=== PATIENT | female | born 1950 | race Hispanic/Latino ===

== ENCOUNTER 2018-04-29 00:01 | Emergency (ER) | payer MEDICARE, OTHER ==
[2018-04-29 00:41] LABS: BASOPHILS % (AUTO) 0.9 % (0.0-5.0); EOSINOPHILS % (AUTO) 2.8 % (0.0-8.0); LYMPHOCYTES % (AUTO) 44.5 % (21.0-51.0); MEAN CORPUSCULAR HEMOGLOBIN 30.3 pg (27.0-33.0); MEAN CORPUSCULAR HGB CONC 34.9 g/dL (32.0-36.0); MEAN CORPUSCULAR VOLUME 86.8 fL (79-99); MONOCYTES % (AUTO) 6.9 % (3.0-13.0); NEUTROPHILS % (AUTO) 44.9 % (40.0-77.0); PLATELET COUNT (AUTO) 203 K/uL (130-400); RED BLOOD CELL COUNT(AUTO) 4.72 MIL/uL (4.00-5.50); RED CELL DISTRIBUTION WIDTH 13.7 % (11.0-15.5)
[2018-04-29 00:58] LABS: ALBUMIN 3.6 g/dL (3.5-5.0); BILIRUBIN,TOTAL 0.4 mg/dL (0.2-1.0); MAGNESIUM 1.8 mg/dL (1.80-2.40); TOTAL PROTEIN, SERUM 6.9 g/dL (6.0-8.3)
[2018-04-29 01:06] LABS: POTASSIUM 2.8 mmol/L (3.5-5.1)
[2018-04-29] MEDS ORDERED: POTASSIUM BICARB/CIT AC 25 MEQ TABLET.EFF ONE (01:21)
== END 2018-04-29 02:13 | disposition home or self-care (01) ==
LOC: EDH 00:01
DX: E87.6 Hypokalemia (principal); R00.2 Palpitations; I10 Essential (primary) hypertension; E78.5 Hyperlipidemia, unspecified
CPT/HCPCS: 36415; 80053; 82550; 83735; 84484; 85025; 93005

== ENCOUNTER → 2018-08-31 | Outpatient (CLI) | payer OTHER | END | disposition home or self-care (01) | LOC: RAH 08:54 | PROVIDERS: ATTEND Internal Medicine | DX: Z12.31 Encounter for screening mammogram for malignant neoplasm of breast (principal) | CPT/HCPCS: 77067 ==

== ENCOUNTER 2019-01-23 08:39 | Emergency (ER) | payer OTHER ==
[2019-01-23] MEDS ORDERED: ASPIRIN 325 MG TABLET ONE (08:55)
[2019-01-23 09:10] LABS: BASOPHILS % (AUTO) 1.1 % (0.0-5.0); EOSINOPHILS % (AUTO) 1.7 % (0.0-8.0); HEMATOCRIT 44.1 % (36-48); LYMPHOCYTES % (AUTO) 39.1 % (21.0-51.0); MEAN CORPUSCULAR HEMOGLOBIN 30.4 pg (27.0-33.0); MEAN CORPUSCULAR HGB CONC 34.3 g/dL (32.0-36.0); MEAN CORPUSCULAR VOLUME 88.6 fL (79-99); MONOCYTES % (AUTO) 7.9 % (3.0-13.0); NEUTROPHILS % (AUTO) 50.2 % (40.0-77.0); PLATELET COUNT (AUTO) 262 K/uL (130-400); RED BLOOD CELL COUNT(AUTO) 4.97 MIL/uL (4.00-5.50); WHITE BLOOD COUNT (AUTO) 6.8 K/uL (4.8-10.8)
[2019-01-23 09:18] LABS: CREATININE 1.7 mg/dL (0.5-1.5)
[2019-01-23 09:27] LABS: ALBUMIN 4.1 g/dL (3.5-5.0); BILIRUBIN,DIRECT 0.1 mg/dL (0.0-0.3); BILIRUBIN,TOTAL 0.4 mg/dL (0.2-1.0); MAGNESIUM 2.2 mg/dL (1.80-2.40); TOTAL PROTEIN, SERUM 7.8 g/dL (6.0-8.3)
[2019-01-23 09:35] LABS: INR 0.98 (0.85-1.15); PARTIAL THROMBOPLASTIN TIME 31.7 SEC (26.3-35.5); PROTHROMBIN TIME 10.3 SEC (9.6-11.6)
[2019-01-23 09:43] LABS: APPEARANCE,URINE Cloudy (CLEAR); BILIRUBIN,URINE Negative (NEGATIVE); COLOR,URINE Yellow (YELLOW); GLUCOSE, URINE (UA) Negative (NEGATIVE); KETONES,URINE Negative (NEGATIVE); LEUKOCYTE ESTERASE ,URINE Large (NEGATIVE); NITRATE,URINE Negative (NEGATIVE); OCCULT BLOOD,URINE Negative (NEGATIVE); PH,URINE 6.5 (5.0-8.0); PROTEIN,URINE Negative (NEGATIVE); UROBILINOGEN,URINE 0.2 mg/dL (0.2-1.0)
[2019-01-23 10:00] LABS: BACTERIA,URINE Few /HPF (None Seen); RBC,URINE None Seen /HPF (0-1); SQUAMOUS EPITHELIAL CELL,UR Few /HPF (0-2)
[2019-01-23] MEDS ORDERED: POTASSIUM CHLORIDE 20 MEQ ERTAB PO ONE ×2 (11:26→13:03)
== END 2019-01-23 15:34 | disposition home or self-care (01) ==
LOC: EDH 08:39
DX: I10 Essential (primary) hypertension (principal); R00.2 Palpitations; E87.6 Hypokalemia; N28.9 Disorder of kidney and ureter, unspecified
CPT/HCPCS: 36415; 71045; 80053; 80076; 81001; 82550; 83735; 83874; 84132; 84484; 85025; 85610; 85730; 87804; 93005

== ENCOUNTER → 2019-07-05 | Outpatient (CLI) | payer OTHER | END | disposition home or self-care (01) | LOC: RAH 10:23 | PROVIDERS: ATTEND Internal Medicine | DX: Z13.6 Encounter for screening for cardiovascular disorders (principal) | CPT/HCPCS: 75571 ==

== ENCOUNTER → 2019-09-01 | Outpatient (CLI) | payer OTHER | END | disposition home or self-care (01) | LOC: RAH 07:20 | PROVIDERS: ATTEND Internal Medicine | DX: Z12.31 Encounter for screening mammogram for malignant neoplasm of breast (principal) | CPT/HCPCS: 77067 ==

== ENCOUNTER 2020-05-02 21:53 | Inpatient (IN) | payer MEDICARE, OTHER ==
[~2020-05-02] VITALS: Ht 165.1 cm; Wt 91.4 kg
[2020-05-02] MEDS ORDERED: ASPIRIN 325 MG TABLET ONE (22:21)
[2020-05-02] MEDS ORDERED: DILTIAZEM HCL 5 MG/ML 10 ML VIAL IV ONE (22:21)
[2020-05-02 22:26] LABS: BASOPHILS % (AUTO) 0.4 % (0.0-5.0); EOSINOPHILS % (AUTO) 2.3 % (0.0-8.0); HEMATOCRIT 45.6 % (36-48); LYMPHOCYTES % (AUTO) 55.7 % (21.0-51.0); MEAN CORPUSCULAR HEMOGLOBIN 29.4 pg (27.0-33.0); MEAN CORPUSCULAR VOLUME 86.4 fL (79-99); MONOCYTES % (AUTO) 7.1 % (3.0-13.0); NEUTROPHILS % (AUTO) 34.3 % (40.0-77.0); PLATELET COUNT (AUTO) 233 K/uL (130-400); RED BLOOD CELL COUNT(AUTO) 5.28 MIL/uL (4.00-5.50); RED CELL DISTRIBUTION WIDTH 13.4 % (11.0-15.5); WHITE BLOOD COUNT (AUTO) 11.1 K/uL (4.8-10.8)
[2020-05-02 22:48] LABS: INR 0.94 (0.85-1.15); PARTIAL THROMBOPLASTIN TIME 31.9 SEC (26.3-35.5); PROTHROMBIN TIME 10.2 SEC (9.6-11.6)
[2020-05-02 22:54] LABS: CREATININE 1.2 mg/dL (0.5-1.5); POTASSIUM 3.5 mmol/L (3.5-5.1)
[2020-05-02 22:58] LABS: ALBUMIN 4.2 g/dL (3.5-5.0); BILIRUBIN,TOTAL 0.3 mg/dL (0.2-1.0)
[2020-05-02] MEDS ORDERED: SODIUM CHLORIDE 0.9% 1000ML 1,000 ML IV SCH (23:20)
[2020-05-02 23:27] LABS: APPEARANCE,URINE Clear (CLEAR); BILIRUBIN,URINE Negative (NEGATIVE); COLOR,URINE Yellow (YELLOW); GLUCOSE, URINE (UA) Negative (NEGATIVE); KETONES,URINE Negative (NEGATIVE); LEUKOCYTE ESTERASE ,URINE Small (NEGATIVE); NITRATE,URINE Negative (NEGATIVE); OCCULT BLOOD,URINE Small (NEGATIVE); PROTEIN,URINE POS 2+ mg/dL (NEGATIVE); UROBILINOGEN,URINE 0.2 mg/dL (0.2-1.0)
[2020-05-02] MEDS ORDERED: AEC81 PO (23:30)
[2020-05-02] MEDS ORDERED: METO25TA6 PO (23:30)
[2020-05-02] MEDS ORDERED: DILT240T13 PO (23:30)
[2020-05-02] MEDS ORDERED: LIDOCAINE HCL-MPF 1% 2ML VIAL IJ PRN (23:30)
[2020-05-02] MEDS ORDERED: LACTULOSE 20 GM/30 ML UDCUP PO PRN (23:30)
[2020-05-02] MEDS ORDERED: MAG HYDROX/AL HYDROX/SIMETH ES 30 ML SUSP UDCUP PO PRN (23:30)
[2020-05-02] MEDS ORDERED: ONDANSETRON HCL 4 MG/2 ML VIAL IV PRN (23:30)
[2020-05-02] MEDS ORDERED: PANT40TA54 PO (23:30)
[2020-05-02] MEDS ORDERED: DIPHENHYDRAMINE HCL 25 MG CAPSULE PO PRN (23:30)
[2020-05-02] MEDS ORDERED: PRAV40TA3 PO (23:30)
[2020-05-02] MEDS ORDERED: POTASSIUM CHLORIDE 10% ELIXIR 20 MEQ/15 ML UDCUP PO PRN (23:30)
[2020-05-02] MEDS ORDERED: POTASSIUM CHLORIDE 20 MEQ ERTAB PO PRN (23:30)
[2020-05-02] MEDS ORDERED: DiphenhydrAMINE HCL 50 MG/ML VIAL IV PRN (23:30)
[2020-05-02] MEDS ORDERED: POTASSIUM CHLORIDE 20MEQ/100ML 100 ML IV PRN (23:30)
[2020-05-02] MEDS ORDERED: LOSA25TA41 PO (23:30)
[2020-05-02] MEDS ORDERED: ACETAMINOPHEN 325 MG TAB PO PRN ×2 (23:30)
[2020-05-02 23:45] LABS: BACTERIA,URINE None Seen /HPF (None Seen); RBC,URINE 0-1 /HPF (0-1); SQUAMOUS EPITHELIAL CELL,UR Moderate /HPF (0-2)
[2020-05-02] MEDS ORDERED: METOPROLOL TARTRATE 1 MG/ML 5ML VIAL IV PRN (23:45)
[2020-05-03] MEDS ORDERED: ENOXAPARIN SODIUM 40 MG/0.4 ML SYRINGE SQ ONE (00:24)
[2020-05-03] MEDS ORDERED: SODIUM CHLORIDE 0.9% 1000ML 1,000 ML IV ONE (00:24)
[2020-05-03 03:40] VITALS: BP 161/68
[2020-05-03 07:04] LABS: TROPONIN I 0.04 ng/mL (0.00-0.06)
[2020-05-03 08:00] VITALS: BP 158/65
[2020-05-03] MEDS ORDERED: PANTOPRAZOLE SODIUM 40 MG TABLET.DR PO SCH (09:00)
[2020-05-03] MEDS ORDERED: ENOXAPARIN SODIUM 40 MG/0.4 ML SYRINGE SQ SCH (09:00)
[2020-05-03] MEDS ORDERED: DILTIAZEM HCL 120 MG CAP.SR.24H PO SCH (09:00)
[2020-05-03] MEDS ORDERED: METOPROLOL TARTRATE 50 MG TAB PO SCH (09:00)
[2020-05-03] MEDS ORDERED: LOSARTAN 50 MG TABLET PO SCH (09:00)
[2020-05-03] MEDS ORDERED: APIXABAN 5 MG TABLET PO SCH (09:15)
[2020-05-03] MEDS ORDERED: METO25TA6 PO (09:22)
[2020-05-03] MEDS ORDERED: APIX5TAB PO (09:22)
[2020-05-03 11:19] LABS: CREATINE KINASE, TOTAL 52 U/L (21-232); MYOGLOBIN 48 ng/mL (10-92); TROPONIN I < 0.04 ng/mL (0.00-0.06)
[2020-05-03 11:27] VITALS: BP 146/61
--- NOTE | 2020-05-03 15:58 | NUR ---
DCP CM met with pt discussed dc plans. Pt is independent prior to admission, verbalized she lives alone but currently living w/mother next door as mother needs asssistance, brother lives close by. Pt verbalized she has a walker that her Mom owns, but hardly uses, she can use it if needed in the future. Denies any other equipments/services. Feels safe to go back home, still drives, brother able to assist with transportation and needs as necessary. DC plan to home once stable. CM to continue to follow up. Verified physical address: [id number] [address] Addendum: 05/03/20 at 1601 by JAREK CARPENTER LVN CM Amended: Links added.
[2020-05-03 16:00] VITALS: BP 156/88
--- NOTE | 2020-05-03 17:39 | NUR ---
RECEIVED CALL FROM DR. FINK. PATIENT CLEARED FOR DISCHARGE. PATIENT TO FOLLOW UP IN OFFICE IN 2-3 DAYS, OFFICE WILL CALL PATIENT TOMORROW WITH AN APPOINTMENT. PER DR. FINK SHE WILL PLACE DISCHARGE ORDERS AND SEND FOR ELIQUIS RX. PATIENT MADE AWARE OF DISCHARGE PLAN
--- NOTE | 2020-05-03 18:05 | NUR ---
DISCHARGE INSTRUCTIONS GIVEN TO PATIENT. MADE AWARE OF NEW RX FOR ELIQUIS, AND DOSE CHANGES TO METOPROLOL. PATIENT AT THIS TIME DENIES CHEST PAIN, DENIES PALPITATIONS. NO SIGNS AND SYMPTOMS OF ACUTE DISTRESS NOTED. INSTRUCTED TO STOP ASPIRIN. TELE AND IV REMOVED. PATIENT WILL BE TAKEN HOME BY FAMILY MEMBER.
[2020-05-03] MEDS ORDERED: SIMVASTATIN 20 MG TABLET PO SCH (21:00)
[2020-05-03] MEDS ORDERED: METOPROLOL TARTRATE 50 MG TAB PO ONE (23:45)
== END 2020-05-03 18:19 | disposition home or self-care (01) | DRG 310 ==
LOC: EDH 21:53 → EDHIP 23:20 → 4BH 05-03 03:27
PROVIDERS: ADMIT Internal Medicine; ATTEND Internal Medicine
DX: I48.91 Unspecified atrial fibrillation (principal); E78.2 Mixed hyperlipidemia; J30.9 Allergic rhinitis, unspecified; N18.2 Chronic kidney disease, stage 2 (mild); E87.6 Hypokalemia; I12.9 Hypertensive chronic kidney disease with stage 1 through stage 4 chronic kidney disease, or unspecified chronic kidney disease; K21.9 Gastro-esophageal reflux disease without esophagitis; Z79.82 Long term (current) use of aspirin; Z79.899 Other long term (current) drug therapy; Z82.49 Family history of ischemic heart disease and other diseases of the circulatory system; Z88.8 Allergy status to other drugs, medicaments and biological substances
CPT/HCPCS: 36415; 71045; 80053; 81001; 82550; 83874; 84484; 85025; 85610; 85730; 93005; 93306; 93356; 99291; G0378; J1650; J7030

== ENCOUNTER → 2020-06-15 | Outpatient (CLI) | payer MEDICARE, OTHER ==
[~2020-06-15] MED LIST: APIX5TAB PO; DILT240T13 PO; LOSA25TA41 PO; METO25TA6 PO; PANT40TA54 PO; PRAV40TA3 PO; REGADENOSON 0.4 MG/5 ML PF SYG IVP SCH
== END | disposition home or self-care (01) ==
LOC: RAH 08:26
PROVIDERS: ATTEND Internal Medicine
DX: R07.9 Chest pain, unspecified (principal); R00.2 Palpitations
CPT/HCPCS: 78452; 93017; 96374; A9500 ×2; J2785

== ENCOUNTER → 2020-09-01 | Outpatient (CLI) | payer OTHER ==
[~2020-09-01] MED LIST changes: -REGADENOSON 0.4 MG/5 ML PF SYG IVP SCH
== END | disposition home or self-care (01) ==
LOC: RAH 07:34
PROVIDERS: ATTEND Internal Medicine
DX: Z12.31 Encounter for screening mammogram for malignant neoplasm of breast (principal); N64.89 Other specified disorders of breast
CPT/HCPCS: 77067

== ENCOUNTER 2022-01-14 06:24 | Emergency (ER) | payer MEDICARE, OTHER ==
[~2022-01-14] VITALS: Ht 165.1 cm; Wt 94.3 kg
[2022-01-14 06:45] LABS: BASOPHILS % (AUTO) 0.6 % (0.0-5.0); EOSINOPHILS % (AUTO) 1.6 % (0.0-8.0); HEMATOCRIT 47.4 % (36-48); LYMPHOCYTES % (AUTO) 37.8 % (21.0-51.0); MEAN CORPUSCULAR HEMOGLOBIN 29.1 pg (27.0-33.0); MEAN CORPUSCULAR HGB CONC 32.9 g/dL (32.0-36.0); MEAN CORPUSCULAR VOLUME 88.4 fL (79-99); MONOCYTES % (AUTO) 6.4 % (3.0-13.0); NEUTROPHILS % (AUTO) 53.3 % (40.0-77.0); PLATELET COUNT (AUTO) 233 K/uL (130-400); RED BLOOD CELL COUNT(AUTO) 5.36 MIL/uL (4.00-5.50); RED CELL DISTRIBUTION WIDTH 13.3 % (11.0-15.5); WHITE BLOOD COUNT (AUTO) 8.8 K/uL (4.8-10.8)
[2022-01-14 06:46] LABS: BILIRUBIN,URINE Negative (NEGATIVE); GLUCOSE, URINE (UA) Negative (NEGATIVE); KETONES,URINE Negative (NEGATIVE); LEUKOCYTE ESTERASE ,URINE Small (NEGATIVE); NITRATE,URINE Negative (NEGATIVE); OCCULT BLOOD,URINE Trace (NEGATIVE); PH,URINE 7.5 (5.0-8.0); PROTEIN,URINE POS 2+ mg/dL (NEGATIVE); UROBILINOGEN,URINE 0.2 mg/dL (0.2-1.0)
[2022-01-14 06:49] LABS: APPEARANCE,URINE CLEAR (CLEAR); COLOR,URINE COLORLESS (YELLOW)
[2022-01-14 06:57] LABS: BACTERIA,URINE Moderate /HPF (None Seen); RBC,URINE 0-1 /HPF (0-1); YEAST,URINE BUDDING Moderate /HPF (None Seen)
[2022-01-14 07:08] LABS: BILIRUBIN,TOTAL 0.3 mg/dL (0.2-1.0); POTASSIUM 3.7 mmol/L (3.5-5.1); TOTAL PROTEIN, SERUM 7.8 g/dL (6.0-8.3)
[2022-01-14 08:04] VITALS: BP 148/71
== END 2022-01-14 08:05 | disposition home or self-care (01) ==
LOC: EDH 06:24
DX: I48.0 Paroxysmal atrial fibrillation (principal); I10 Essential (primary) hypertension; E78.00 Pure hypercholesterolemia, unspecified; Z90.49 Acquired absence of other specified parts of digestive tract; Z88.8 Allergy status to other drugs, medicaments and biological substances; Z79.899 Other long term (current) drug therapy
CPT/HCPCS: 36415; 80053; 81001; 84484; 85025; 87088; 93005

== ENCOUNTER 2022-02-05 06:53 | Emergency (ER) | payer MEDICARE ==
[~2022-02-05] VITALS: Ht 162.6 cm; Wt 85.7 kg
[2022-02-05 07:08] LABS: BASOPHILS % (AUTO) 0.6 % (0.0-5.0); EOSINOPHILS % (AUTO) 2.1 % (0.0-8.0); LYMPHOCYTES % (AUTO) 50.1 % (21.0-51.0); MEAN CORPUSCULAR HGB CONC 33.4 g/dL (32.0-36.0); MEAN CORPUSCULAR VOLUME 86.9 fL (79-99); MONOCYTES % (AUTO) 7.2 % (3.0-13.0); NEUTROPHILS % (AUTO) 39.7 % (40.0-77.0); PLATELET COUNT (AUTO) 217 K/uL (130-400); RED BLOOD CELL COUNT(AUTO) 4.72 MIL/uL (4.00-5.50); RED CELL DISTRIBUTION WIDTH 13.2 % (11.0-15.5); WHITE BLOOD COUNT (AUTO) 7.3 K/uL (4.8-10.8)
[2022-02-05 07:18] LABS: INR 1.04 (0.85-1.15); PROTHROMBIN TIME 11.3 SEC (9.6-11.6)
[2022-02-05 07:20] LABS: PARTIAL THROMBOPLASTIN TIME 34.3 SEC (26.3-35.5)
[2022-02-05 07:25] LABS: ALBUMIN 3.8 g/dL (3.5-5.0); BILIRUBIN,TOTAL 0.7 mg/dL (0.2-1.0); CREATININE 0.9 mg/dL (0.5-1.5); POTASSIUM 4.1 mmol/L (3.5-5.1); TOTAL PROTEIN, SERUM 7.4 g/dL (6.0-8.3)
[2022-02-05] MEDS ORDERED: KETOROLAC 15MG/ML VIAL (15MG/ML) IV ONE (07:30)
[2022-02-05 08:44] VITALS: BP 132/48
== END 2022-02-05 08:44 | disposition home or self-care (01) ==
LOC: EDH 06:53
DX: R07.89 Other chest pain (principal); I48.91 Unspecified atrial fibrillation; I25.10 Atherosclerotic heart disease of native coronary artery without angina pectoris; E11.9 Type 2 diabetes mellitus without complications; I10 Essential (primary) hypertension; Z90.89 Acquired absence of other organs; Z88.8 Allergy status to other drugs, medicaments and biological substances; Z79.899 Other long term (current) drug therapy; Z79.01 Long term (current) use of anticoagulants
CPT/HCPCS: 36415; 71045; 80053; 83735; 84484; 85025; 85610; 85730; 93005; 96374; 99285; J1885

== ENCOUNTER → 2022-09-04 | Outpatient (CLI) | payer MEDICARE | END | disposition home or self-care (01) | LOC: RAH 08:40 | PROVIDERS: ATTEND Internal Medicine | DX: Z12.31 Encounter for screening mammogram for malignant neoplasm of breast (principal) | CPT/HCPCS: 77067 ==

== ENCOUNTER 2023-03-19 13:50 | Observation (INO) | payer MEDICARE ==
[~2023-03-19] VITALS: Ht 154.9 cm; Wt 74.4 kg
[2023-03-19] MEDS ORDERED: MECLIZINE HCL 25 MG TABLET PO ONE (14:30)
[2023-03-19] MEDS ORDERED: LACTATED RINGERS 1000ML 1,000 ML IV ONE (14:30)
[2023-03-19] MEDS ORDERED: ONDANSETRON 4MG INJ IVP ONE (14:30)
[2023-03-19 14:43] LABS: APPEARANCE,URINE CLOUDY (CLEAR); BILIRUBIN,URINE NEGATIVE (NEGATIVE); COLOR,URINE LIGHT-YELLOW (YELLOW); GLUCOSE, URINE (UA) NEGATIVE (NEGATIVE); KETONES,URINE NEGATIVE (NEGATIVE); LEUKOCYTE ESTERASE ,URINE 25 Leu/uL (NEGATIVE); NITRATE,URINE NEGATIVE (NEGATIVE); OCCULT BLOOD,URINE NEGATIVE (NEGATIVE); PH,URINE 6.5 (5.0-8.0); PROTEIN,URINE 10 mg/dL (NEGATIVE); UROBILINOGEN,URINE 0.2 mg/dL (0.2-1.0)
[2023-03-19 15:00] LABS: BACTERIA,URINE RARE /HPF (None Seen); MUCUS,URINE RARE LPF (None Seen); SQUAMOUS EPITHELIAL CELL,UR MOD /HPF (0-2); YEAST,URINE BUDDING RARE /HPF (None Seen)
[2023-03-19] MEDS ORDERED: METOCLOPRAMIDE 10 MG/2 ML VIAL ONE (15:24)
[2023-03-19] MEDS ORDERED: METOCLOPRAMIDE 10 MG/2 ML VIAL IVP ONE (15:30)
[2023-03-19 15:48] LABS: BASOPHILS % (AUTO) 0.5 % (0.0-5.0); EOSINOPHILS % (AUTO) 0.2 % (0.0-8.0); HEMATOCRIT 37.4 % (36-48); LYMPHOCYTES % (AUTO) 16.6 % (21.0-51.0); MEAN CORPUSCULAR HEMOGLOBIN 29.4 pg (27.0-33.0); MEAN CORPUSCULAR HGB CONC 33.7 g/dL (32.0-36.0); MEAN CORPUSCULAR VOLUME 87.4 fL (79-99); PLATELET COUNT (AUTO) 206 K/uL (130-400); RED BLOOD CELL COUNT(AUTO) 4.28 MIL/uL (4.00-5.50); RED CELL DISTRIBUTION WIDTH 13.4 % (11.0-15.5)
[2023-03-19 16:00] LABS: CREATININE 0.9 mg/dL (0.5-1.5)
[2023-03-19 16:05] LABS: ALBUMIN 3.3 g/dL (3.5-5.0); TOTAL PROTEIN, SERUM 5.8 g/dL (6.0-8.3)
[2023-03-19] MEDS ORDERED: CEFTRIAXONE 1G VIAL IVPB ONE (16:30)
[2023-03-19] MEDS ORDERED: HYDR-4154 PO (16:50)
[2023-03-19] MEDS ORDERED: LOSA50TA64 PO (16:50)
[2023-03-19] MEDS ORDERED: METO-408 PO (16:50)
[2023-03-19] MEDS ORDERED: LINA72CA PO (16:50)
[2023-03-19] MEDS ORDERED: CALC1TAB2 PO (16:51)
[2023-03-19] MEDS ORDERED: ACETAMINOPHEN 325 MG TAB PO PRN (17:00)
[2023-03-19] MEDS ORDERED: ONDANSETRON 4MG INJ IVP PRN (17:00)
[2023-03-19] MEDS: 0.9%NACL 1000ML 1,000 ML IV SCH (17:50)
[2023-03-19] MEDS: SOLU-MEDROL 125MG VIAL IVP SCH ×2 (17:51→23:13)
[2023-03-19 20:05] VITALS: BP 136/65
[2023-03-19 23:07] VITALS: BP 119/63
[2023-03-20] MEDS ORDERED: MAG/ALUM/SIMETH 30 ML UDCUP PO PRN (00:30)
[2023-03-20] MEDS ORDERED: POTASSIUM CHLORIDE 20MEQ/100ML 100 ML IV PRN (00:30)
[2023-03-20] MEDS ORDERED: KCL 20 MEQ ERTAB PO PRN (00:30)
[2023-03-20] MEDS ORDERED: DIPHENHYDRAMINE HCL 25 MG CAPSULE PO PRN (00:30)
[2023-03-20] MEDS ORDERED: ACETAMINOPHEN 325 MG TAB PO PRN (00:30)
[2023-03-20] MEDS ORDERED: POTASSIUM CHLORIDE 10% ELIXIR 20 MEQ/15 ML UDCUP PO PRN (00:30)
[2023-03-20] MEDS ORDERED: LACTULOSE 20 GM/30 ML UDCUP PO PRN (00:30)
[2023-03-20] MEDS ORDERED: MECLIZINE HCL 25 MG TABLET PO PRN (00:30)
[2023-03-20 03:11] VITALS: BP 151/75
[2023-03-20] MEDS: 0.9%NACL 1000ML 1,000 ML IV SCH (04:22)
[2023-03-20] MEDS: SOLU-MEDROL 125MG VIAL IVP SCH (05:29)
[2023-03-20 07:25] VITALS: BP 146/67
[2023-03-20] MEDS ORDERED: PRED10TA3 PO (08:42)
[2023-03-20] MEDS ORDERED: FAMOTIDINE 20MG TAB PO SCH (09:00)
[2023-03-20] MEDS ORDERED: PREDNISONE 20 MG TABLET PO SCH (09:00)
[2023-03-20] MEDS ORDERED: HYDRALAZINE 25MG TABLET PO SCH (09:00)
[2023-03-20] MEDS ORDERED: APIXABAN 5 MG TABLET PO SCH (09:00)
[2023-03-20] MEDS ORDERED: PANTOPRAZOLE 40 MG TAB DR PO SCH (09:00)
[2023-03-20] MEDS ORDERED: SIMVASTATIN 20 MG TABLET PO SCH (09:00)
[2023-03-20 11:58] VITALS: BP 136/60
[2023-03-21] MEDS ORDERED: SIMVASTATIN 20 MG TABLET PO SCH (21:00)
== END 2023-03-20 15:30 | disposition home or self-care (01) ==
LOC: EDH 13:50 → EDHIP 16:34 → WSH 19:30
PROVIDERS: ADMIT Internal Medicine; ATTEND Internal Medicine
DX: R42 Dizziness and giddiness (principal); E78.5 Hyperlipidemia, unspecified; J30.9 Allergic rhinitis, unspecified; I12.9 Hypertensive chronic kidney disease with stage 1 through stage 4 chronic kidney disease, or unspecified chronic kidney disease; N18.31 Chronic kidney disease, stage 3a; E11.22 Type 2 diabetes mellitus with diabetic chronic kidney disease; I48.0 Paroxysmal atrial fibrillation; D68.69 Other thrombophilia; I25.10 Atherosclerotic heart disease of native coronary artery without angina pectoris; I51.7 Cardiomegaly; I70.0 Atherosclerosis of aorta; Z79.01 Long term (current) use of anticoagulants; Z79.899 Other long term (current) drug therapy; Z90.49 Acquired absence of other specified parts of digestive tract; Z98.890 Other specified postprocedural states
CPT/HCPCS: 96376 ×2; 96361 ×2; 96365; 96375; 99285; 84484; 80053; 85025; 87088; 81001; 36415; 71045; 70551; 93005; 97161; J7030 ×2; J2930 ×3; J0696; J2405; J2765; G0378 ×15

== ENCOUNTER → 2023-09-05 | Outpatient (CLI) | payer MEDICARE ==
[~2023-09-05] MED LIST changes: +CALC1TAB2 PO; +HYDR-4154 PO; +LINA72CA PO; -LOSA25TA41 PO; +LOSA50TA64 PO; +METO-408 PO; -METO25TA6 PO; -PANT40TA54 PO; +PRED10TA3 PO
== END | disposition home or self-care (01) ==
LOC: RAH 08:37
PROVIDERS: ATTEND Internal Medicine
DX: Z12.31 Encounter for screening mammogram for malignant neoplasm of breast (principal)
CPT/HCPCS: 77067

== ENCOUNTER 2025-03-03 21:17 | Emergency (ER) | payer MEDICARE ==
[~2025-03-03] VITALS: Ht 167.6 cm; Wt 90.7 kg
[~2025-03-03 21:17] MED LIST changes: -HYDR-4154 PO; +HYDR50TA37 PO
--- NOTE | 2025-03-03 21:53 | HMCIMG ---
CHEST 1VW HISTORY: Chest pain COMPARISON: 03/19/2023 FINDINGS: A frontal projection of the chest was obtained. Mild bilateral pulmonary infiltrates are seen may be related to mild pulmonary vascular congestion with possible superimposed pneumonitis. The heart is enlarged. Aortic calcifications are seen. Degenerative changes are seen. No evidence of aortic calcification is seen. IMPRESSION: 1. Mild bilateral pulmonary infiltrates are seen may be related to mild pulmonary vascular congestion with possible superimposed pneumonitis.
[2025-03-03 21:54] LABS: APPEARANCE,URINE CLOUDY (CLEAR); BILIRUBIN,URINE NEGATIVE (NEGATIVE); COLOR,URINE LIGHT-YELLOW (YELLOW); GLUCOSE, URINE (UA) NEGATIVE (NEGATIVE); KETONES,URINE NEGATIVE (NEGATIVE); LEUKOCYTE ESTERASE ,URINE 500 Leu/uL (NEGATIVE); NITRATE,URINE NEGATIVE (NEGATIVE); OCCULT BLOOD,URINE NEGATIVE (NEGATIVE); PH,URINE 6.5 (5.0-8.0); PROTEIN,URINE 10 mg/dL (NEGATIVE); UROBILINOGEN,URINE 0.2 mg/dL (0.2-1.0)
[2025-03-03 21:57] LABS: ADD UA MICROSCOPIC YES
[2025-03-03 21:58] LABS: BASOPHILS # (AUTO) 0.06 K/uL (0.00-0.20); BASOPHILS % (AUTO) 0.5 % (0.0-5.0); EOSINOPHILS % (AUTO) 1.6 % (0.0-8.0); HEMATOCRIT 42.9 % (36-48); IMMATURE GRANULOCYTE ABSOLUTE 0.03 K/uL (0-1); LYMPHOCYTES # (AUTO) 6.7 K/uL (1.0-4.8); LYMPHOCYTES % (AUTO) 54.9 % (21.0-51.0); MEAN CORPUSCULAR HGB CONC 34.3 g/dL (32.0-36.0); MEAN CORPUSCULAR VOLUME 90.5 fL (79-99); NEUTROPHILS # (AUTO) 4.2 K/uL (1.8-7.7); NEUTROPHILS % (AUTO) 34.8 % (40.0-77.0); PLATELET COUNT (AUTO) 249 K/uL (130-400); RED BLOOD CELL COUNT(AUTO) 4.74 MIL/uL (4.00-5.50); RED CELL DISTRIBUTION WIDTH 13.3 % (11.0-15.5); WHITE BLOOD COUNT (AUTO) 12.1 K/uL (4.8-10.8)
[2025-03-03 22:08] LABS: CREATININE 1.3 mg/dL (0.5-1.0); POTASSIUM 3.2 mmol/L (3.5-5.1)
[2025-03-03 22:11] LABS: BACTERIA,URINE MOD /HPF (None Seen); RENAL EPITHELIAL CELLS,URINE RARE /HPF (None Seen); SQUAMOUS EPITHELIAL CELL,UR MANY /HPF (0-2); WBC,URINE TNTC /HPF (0-1)
[2025-03-03 23:08] LABS: B-TYPE NATRIURETIC PEPTIDE 209 pg/mL (0-100)
[2025-03-03 23:13] LABS: EOSINOPHILS % (MANUAL) 1 % (1-6); LYMPHOCYTES % (MANUAL) 65 % (22-44); MAN.DIFF COMMENT-IMPRESSION MANUAL DIFFERENTIAL; MONOCYTES % (MANUAL) 3 % (2-9); SEGMENTED NEUTROPHILS % 31 % (40-70); TOTAL CELLS COUNTED 100; WBC MORPHOLOGY REACTIVE LYMPHS 2+
[2025-03-03 23:14] LABS: PLATELET MORPHOLOGY COMMENT ADEQUATE
[2025-03-03] MEDS: PoTASSium BIcarbonate/CIT AC 25 MEQ TABLET.EFF PO ONE (23:24)
[2025-03-03] MEDS: 0.9%NACL 1000ML 1,000 ML IV ONE (23:24)
[2025-03-03] MEDS: cefTRIAXone 1G VIAL IVPB ONE (23:25)
--- NOTE | 2025-03-04 00:04 | ERN ---
General Chief Complaint: Chest Pain Stated Complaint: CHEST PAIN Time Seen by MD: 21:34 History of Present Illness Allergies: Coded Allergies: amlodipine (Unverified Allergy, Unknown, 05/03/20) Home Meds Active Scripts Prednisone (Prednisone) 10 Mg Tablet, 10 MG PO AD, #7 TAB 2 daily x 2 days then 1 po daily x 3 days then stop- take with food in the mourning Prov:GAVIN FINK MD 03/20/23 Calcium Carbonate/Vitamin D3 (Caltrate 600 + D Tablet) 1 Each Tablet, 1 EACH PO DAILY, #90 TAB Prov:GAVIN FINK MD 03/19/23 Linaclotide (Linzess) 72 Mcg Capsule, 72 MCG PO QODAY, #45 CAP Prov:GAVIN FINK MD 03/19/23 Hydralazine HCl (Hydralazine HCl) 50 Mg Tablet, 50 MG PO BID, #180 TAB Prov:GAVIN FINK MD 03/19/23 Metoprolol Succinate (Metoprolol Succinate) 25 Mg Tab.er.24h, 25 MG PO DAILY, #90 TAB Prov:GAVIN FINK MD 03/19/23 Losartan Potassium (Losartan Potassium) 50 Mg Tablet, 50 MG PO BID, #180 TAB Prov:GAVIN FINK MD 03/19/23 Apixaban (Eliquis) 5 Mg Tablet, 5 MG PO BID, #60 TAB 1 Refill Prov:GAVIN FINK MD 05/03/20 Pravastatin Sodium (Pravastatin Sodium) 40 Mg Tablet, 40 MG PO DAILY, #90 TAB 1 Refill Prov:GAVIN FINK MD 05/02/20 Diltiazem HCl (Diltiazem ER) 240 Mg Tab.er.24h, 240 MG PO DAILY, #90 TAB 0 Refills Prov:GAVIN FINK MD 05/02/20 Past Medical History Past Medical History: Diabetes-Type II, High Cholesterol, Hypertension Past Surgical History: Appendectomy, Unknown Social History Social History: Negative, Other Results Laboratory and Microbiology Lab and Micro Result Laboratory Tests Test 03/03/25 21:31 White Blood Count 12.1 K/uL (4.8-10.8) H Red Blood Count 4.74 MIL/uL (4.00-5.50) Hemoglobin 14.7 g/dL (12.0-16.0) Hematocrit 42.9 % (36-48) Mean Corpuscular Volume 90.5 fL (79-99) Mean Corpuscular Hemoglobin 31.0 pg (27.0-33.0) Mean Corpuscular Hemoglobin Concent 34.3 g/dL (32.0-36.0) Red Cell Distribution Width 13.3 % (11.0-15.5) Platelet Count 249 K/uL (130-400) Mean Platelet Volume 9.9 fL (7.5-10.5) Immature Granulocyte % (Auto) 0.2 % (0-1) Neutrophils (%) (Auto) 34.8 % (40.0-77.0) L Lymphocytes (%) (Auto) 54.9 % (21.0-51.0) H Monocytes (%) (Auto) 8.0 % (3.0-13.0) Eosinophils (%) (Auto) 1.6 % (0.0-8.0) Basophils (%) (Auto) 0.5 % (0.0-5.0) Neutrophils # (Auto) 4.2 K/uL (1.8-7.7) Lymphocytes # (Auto) 6.7 K/uL (1.0-4.8) H Monocytes # (Auto) 1.0 K/uL (0.1-1.0) Eosinophils # (Auto) 0.20 K/uL (0.00-0.70) Basophils # (Auto) 0.06 K/uL (0.00-0.20) Absolute Immature Granulocyte (auto 0.03 K/uL (0-1) Segmented Neutrophils % 31 % (40-70) L Lymphocytes % (Manual) 65 % (22-44) H Monocytes % (Manual) 3 % (2-9) Eosinophils % (Manual) 1 % (1-6) Nucleated Red Blood Cells 0.0 % (0.0-0.19) Differential Comment MANUAL DIFFERENTIAL White Cell Morphology Comment REACTIVE LYMPHS 2+ Platelet Morphology Comment ADEQUATE Red Blood Cell Morphology ACANTHOCYTES 1+ Urine Color LIGHT-YELLOW (YELLOW) Urine Appearance CLOUDY (CLEAR) H Urine pH 6.5 (5.0-8.0) Urine Specific [place] 1.008 (1.001-1.031) Urine Protein 10 mg/dL (NEGATIVE) H Urine Glucose (UA) NEGATIVE mg/dL (NEGATIVE) Urine Ketones NEGATIVE mg/dL (NEGATIVE) Urine Occult Blood NEGATIVE (NEGATIVE) Urine Nitrate NEGATIVE (NEGATIVE) Urine Bilirubin NEGATIVE mg/dL (NEGATIVE) Urine Urobilinogen 0.2 mg/dL (0.2-1.0) Urine Leukocyte Esterase 500 [place]/uL (NEGATIVE) H Urine RBC 11-25 /HPF (0-1) H Urine WBC TNTC /HPF (0-1) H Urine Squamous Epithelial Cells MANY /HPF (0-2) Urine Renal Epithelial Cells RARE /HPF (None Seen) Urine Amorphous Crystals (Auto) MOD /LPF (None Seen) Urine Bacteria MOD /HPF (None Seen) Sodium Level 140 mmol/L (136-145) Potassium Level 3.2 mmol/L (3.5-5.1) L Chloride Level 104 mmol/L (101-111) Carbon Dioxide Level 26 mmol/L (21-32) Blood Urea Nitrogen 25 mg/dL (7-18) H Creatinine 1.3 mg/dL (0.5-1.0) H Glomerular Filtration Rate Calc 43 mL/min (>90) Random Glucose 120 mg/dL (70-105) H Total Calcium 9.4 mg/dL (8.5-10.1) Total Creatine Kinase 83 U/L (21-232) # Troponin I High Sensitivity 8 ng/L (4-50) B-Type Natriuretic Peptide 209 pg/mL (0-100) H ED Course Orders Procedure Category Date Status Time Vital Signs Per CPOE 03/03/25 Transmitted Routine 21:19 B-Type Natriuretic LAB 03/03/25 Complete Peptide 21:19 Chest 1vw RAD 03/03/25 Resulted 21:19 12 Lead Ekg Tracing- EKG 03/03/25 Logged Technical 21:19 Oxygen By Nc/Pulse Ox CPOE 03/03/25 Transmitted 21:19 Maintain Iv CPOE 03/03/25 Transmitted 21:19 Iv Insertion CPOE 03/03/25 Transmitted 21:19 Cardiac Monitoring CPOE 03/03/25 Transmitted 21:19 Pulse Oximetry With CPOE 03/03/25 Transmitted Vs And Prn 21:19 Cbc With Differential LAB 03/03/25 Complete 21:19 Activity: Br W/Brp CPOE 03/03/25 Transmitted With Assist 21:19 Creatine Kinase, Total LAB 03/03/25 Complete 21:19 Troponin I High LAB 03/03/25 Complete Sensitivity 21:19 Urinalysis Profile LAB 03/03/25 Complete 21:19 Basic Metabolic Panel LAB 03/03/25 Complete 21:19 Culture Urine NEDA 03/03/25 In Process 21:57 Manual Differential LAB 03/03/25 Complete 21:31 0.9%Nacl 1000ml (Ns PHA 03/03/25 Complete 1000ml) 23:30 Potassium Bicarb/Cit PHA 03/03/25 Complete Ac 25meq (K-Lyte Ta 23:30 Ceftriaxone 1g Vial PHA 03/03/25 Complete (Rocephine 1g Inj) 23:30 Current Medications Medications (Trade) Dose Ordered Sig/Yamel Route PRN Reason Start Time Stop Time Status Last Admin Dose Admin Ceftriaxone Sodium (ROCEphine 1G INJ) 1 gm ONCE ONCE IVPB 03/03/25 23:30 03/03/25 23:31 DC 03/03/25 23:25 Potassium Bicarbonate (K-Lyte Tablet Eff 25 Meq Tablet.eff) 25 meq ONCE ONCE PO 03/03/25 23:30 03/03/25 23:31 DC 03/03/25 23:24 Sodium Chloride 1,000 ml @ 0 mls/hr ONCE ONCE IV 03/03/25 23:30 03/03/25 23:31 DC 03/03/25 23:24 Vital Signs Date Time Temp Pulse Resp B/P (MAP) Pulse Ox O2 Delivery O2 Flow Rate FiO2 03/03/25 23:30 98.2 78 18 147/88 98 Room Air* 0 21 03/03/25 21:39 74 18 154/92 96 Room Air* 0 21 03/03/25 21:18 98.2 64 22 166/84 97 Room Air DX & DISP Disposition: Discharge Departure Impression: Primary Impression: History of atrial fibrillation Additional Impressions: Mild dehydration, Hypokalemia, Urinary tract infection Condition: Stable Scripts Cephalexin Monohydrate (Keflex) 500 Mg Cap 500 MG PO QID for 7 Days, #28 CAP Prov: EARL MONET 03/04/25 Referrals: GAVIN FNIK MD (PCP) I have reviewed the case, and I agree with, Diagnosis and Plan I performed the substantive portion of the visit. I have reviewed and personally made and approve the management plan that is documented in the note by myself or the SHANI. I acknowledge for responsibility for the patient's management plan. EARL MONET Mar 04, 2025 00:04
[2025-03-04] MEDS ORDERED: CEPH500B PO (00:08)
[2025-03-04 00:29] VITALS: BP 137/85; PULSE 78; RESP 18; TEMP 98.2; O2SAT 97
--- NOTE | 2025-03-04 07:54 | EKG ---
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1950 Requested By: DELISA RUBIN Order Number: [id number] Reading MD: Shea Sharma Measurements Intervals [place] Rate: 74 P: 0 FL: 0 QRS: -40 QRSD: 96 T: 56 QT: 439 QTc: 487 Interpretive Statements Atrial fibrillation Left anterior fascicular block LVH with secondary repolarization abnormality Anterior Q waves, possibly due to LVH Compared to ECG 03/19/2023 14:14:29 Left anterior fascicular block now present Early repolarization now present Q waves now present Sinus rhythm no longer present Electronically Signed On 03-04-2025 09:34:02 CDT by Shea Sharma Please click the below link to view image of tracing.
[2025-03-04] MEDS ORDERED: CIPOTIC OTIC (11:23)
== END 2025-03-04 00:36 | disposition home or self-care (01) ==
LOC: EDH 21:17
DX: E86.0 Dehydration (principal); E87.6 Hypokalemia; N39.0 Urinary tract infection, site not specified; E11.9 Type 2 diabetes mellitus without complications; E78.00 Pure hypercholesterolemia, unspecified; I10 Essential (primary) hypertension; Z79.01 Long term (current) use of anticoagulants; Z79.899 Other long term (current) drug therapy; Z88.8 Allergy status to other drugs, medicaments and biological substances; Z90.49 Acquired absence of other specified parts of digestive tract
CPT/HCPCS: 99285; 96365; 71045; 82550; 84484; 80048; 83880; 85025; 87086; 81001; 36415; 93005; J7030; J0696

== ENCOUNTER 2025-03-04 09:08 | Emergency (ER) | payer MEDICARE ==
[~2025-03-04] VITALS: Ht 167.6 cm; Wt 96.2 kg
[~2025-03-04 09:08] MED LIST changes: +CEPH500B PO
[2025-03-04] MEDS: diazePAM 5 MG TAB PO STA (09:39)
[2025-03-04] MEDS: LACTATED RINGERS 1000ML 1,000 ML IV ONE (11:06)
[2025-03-04] MEDS ORDERED: CIPOTIC OTIC (11:23)
--- NOTE | 2025-03-04 11:24 | ERN ---
General Chief Complaint: Palpitations Stated Complaint: PALPITATIONS Time Seen by MD: 09:11 Source: patient, family History of Present Illness Initial Comments Patient is a 75-year-old female coming in to be evaluated for anxiety. Patient states that the anxiety event is caused by pain in her left ear. Patient was recently seen yesterday and was discharged in stable condition. Patient states that she was still having the discomfort. Allergies: Coded Allergies: amlodipine (Unverified Allergy, Unknown, 05/03/20) Home Meds Active Scripts Cephalexin Monohydrate (Keflex) 500 Mg Cap, 500 MG PO QID for 7 Days, #28 CAP Prov:EARL MONET 03/04/25 Prednisone (Prednisone) 10 Mg Tablet, 10 MG PO AD, #7 TAB 2 daily x 2 days then 1 po daily x 3 days then stop- take with food in the mourning Prov:GAVIN FINK MD 03/20/23 Calcium Carbonate/Vitamin D3 (Caltrate 600 + D Tablet) 1 Each Tablet, 1 EACH PO DAILY, #90 TAB Prov:GAVIN FINK MD 03/19/23 Linaclotide (Linzess) 72 Mcg Capsule, 72 MCG PO QODAY, #45 CAP Prov:GAVIN FINK MD 03/19/23 Hydralazine HCl (Hydralazine HCl) 50 Mg Tablet, 50 MG PO BID, #180 TAB Prov:GAVIN FINK MD 03/19/23 Metoprolol Succinate (Metoprolol Succinate) 25 Mg Tab.er.24h, 25 MG PO DAILY, #90 TAB Prov:GAVIN FINK MD 03/19/23 Losartan Potassium (Losartan Potassium) 50 Mg Tablet, 50 MG PO BID, #180 TAB Prov:GAVIN FINK MD 03/19/23 Apixaban (Eliquis) 5 Mg Tablet, 5 MG PO BID, #60 TAB 1 Refill Prov:GAVIN FINK MD 05/03/20 Pravastatin Sodium (Pravastatin Sodium) 40 Mg Tablet, 40 MG PO DAILY, #90 TAB 1 Refill Prov:GAVIN FINK MD 05/02/20 Diltiazem HCl (Diltiazem ER) 240 Mg Tab.er.24h, 240 MG PO DAILY, #90 TAB 0 Refills Prov:GAVIN FINK MD 05/02/20 Past Medical History Past Medical History: A-Fib, Diabetes-Type II, High Cholesterol, Hypertension Past Surgical History: Appendectomy, Unknown Social History Social History: Negative, Other ROS Dictation CONSTITUTIONAL: No chills, no fever, no weakness, no diaphoresis, no malaise. HEAD/FACE: No signs of trauma. EENT: No eye pain, no blurred vision, no tearing, no double vision, no ear pain, no ear discharge, no nose pain, no nasal congestion, no throat pain, no throat swelling, no mouth pain. RESPIRATORY: No cough, no orthopnea, no SOB, no stridor, no wheezing. CARDIOVASCULAR: No chest pain, no edema, no palpitations, no syncope. GASTROINTESTINAL/ABDOMINAL: No abdominal pain, no constipation, no diarrhea, no nausea, no vomiting. GENITOURINARY: No abnormal discharge, no dysuria, no frequent urination, no hematuria. No complaints of pain in the genitals. MUSCULOSKELETAL: No back pain, no gout, no joint pain, no joint swelling, no muscle pain, no muscle stiffness, no neck pain. INTEGUMENTARY: No change in color, no change in hair/nails, no dryness, no lesion, no lumps, no rash. NEUROLOGICAL/PSYCH: No anxiety, not depressed, no emotional problem, no headache, no numbness, no pre-existing deficit, no history of seizures, no tremors, no weakness. HEMATOLOGIC/LYMPHATIC: Not anemic, no history of blood clots, no apparent bleeding, no bruising, glands not swollen. All Systems Negative, Except as Noted. Physical Exam Physical Exam Dictation VITAL SIGNS: Reviewed. GENERAL APPEARANCE: Alert, oriented x3, no acute distress, obese. HEAD AND FACE: Non-traumatic. EYES: PERRL, pink conjunctivas, eyelid no trauma, anterior chamber clear. EARS: Pinnas intact and no signs of trauma or erythema. Ear canals clear and no discharge. Foreign body to the left ear, cerumen impaction NOSE: No discharge, no bleeding. OROPHARYNX: Mouth normal, teeth no caries, tongue pink. Pharynx clear, no erythema. Tonsils no exudates, no abscesses noted. Mucous membrane moist. NECK: Supple, non-tender, no thyromegaly, no masses, no JVD, no bruits. BREAST: Deferred. CHEST: No tenderness, no crepitus, no paradoxical movement, no retractions. LUNGS: Clear, well-ventilated, symmetric, no rales, no wheezing, no rhonchi, no stridor, good breath sounds bilaterally. HEART: Regular rate, regular rhythm, no murmur, no gallops. VASCULAR: No peripheral edema. ABDOMEN: Soft, positive bowel sounds, nondistended, no guarding, nontender, no rebound, no masses no hepatomegaly, no splenomegaly, no Recinos's sign, no hernias. RECTAL: Deferred. GENITAL: Deferred. NEUROLOGICAL: Normal speech, gross motor function intact, gross sensory function intact. MUSCULOSKELETAL: Neck nontender, full range of motion, back nontender, full range of motion. EXTREMITIES: Nontender, full range of motion. SKIN: Color pink, dry, no turgor, no rash, no lacerations, no abrasions, no contusions. LYMPHATICS: Deferred. Results Laboratory and Microbiology Labs Reviewed?: Yes EKG/XRAY/US/CT/MRI EKG Comment 03/04/2025 time 9:06 a.m. Ventricular rate 57 Sinus rhythm [place] [address] wave elevation or depression MDM MDM: Differential diagnosis: Left otitis media, cerumen impaction, anxiety, Rationale: Tests considered and ordered secondary to shared decision making include: Previous outside records reviewed: Old ER visits. Patient is a 75-year-old female coming in for the 2nd time due to left ear d iscomfort and anxiety. EKG was performed due the anxiousness with palpitation she was presenting with. EKG was within normal limits. On physical exam left external ear was presenting with a foreign body in the form of cerumen impaction. Ear was cleaned cerumen was removed. Patient was given anxiolytics states he feels much better. Patient will be discharged in stable condition with otitis externa antibiotics he will be provided. I did advise her to follow up with PCP for long-term management of anxiety. ED Course Orders Procedure Category Date Status Time 12 Lead Ekg Tracing- EKG 03/04/25 Logged Technical 09:11 Lactated Ringers PHA 03/04/25 Complete 1000ml (Lactated 09:30 Troponin I High LAB 03/04/25 In Process Sensitivity 09:11 Diazepam 5mg Tab PHA 03/04/25 Complete (Valium 5 Mg Tab) 09:21 Current Medications Medications (Trade) Dose Ordered Sig/Yamel Route PRN Reason Start Time Stop Time Status Last Admin Dose Admin Diazepam (VALium 5 mg TAB) 5 mg Q4H STAT PO 03/04/25 09:21 03/04/25 09:23 DC 03/04/25 09:39 Lactated Ringer's 1,000 ml @ 0 mls/hr ONCE ONCE IV 03/04/25 09:30 03/04/25 09:31 DC Vital Signs Date Time Temp Pulse Resp B/P (MAP) Pulse Ox O2 Delivery O2 Flow Rate FiO2 03/04/25 09:24 87.8 55 18 150/66 99 Room Air* 0 21 03/04/25 09:09 97.9 55 20 150/66 99 Room Air DX & DISP Disposition: Discharge Departure Impression: Primary Impression: Foreign body in left ear Additional Impression: Anxiety Condition: Stable Scripts Ciprofloxacin/Hydrocortisone (Cipro Hc Otic Suspension) 0.2 %-1 % Drops.susp 3 DROP OTIC BID for 7 Days, #10 ML 0 Refills Prov: KAREN FREEMAN MD 03/04/25 Additional Instructions: FOLLOW-UP WITH PRIMARY CARE PROVIDER IN 1 TO 2 DAYS. TAKE MEDICATIONS DIRECTED HERE IN THE EMERGENCY ROOM. OKAY TO CONTINUE HOME MEDICATIONS UNLESS OTHERWISE DISCUSSED DURING YOUR VISIT IN THE EMERGENCY ROOM TODAY. RETURN TO YOUR NEAREST EMERGENCY ROOM IF SYMPTOMS WORSEN OR IF THERE IS NO IMPROVEMENT. CALL 911 IF YOU NEED IMMEDIATE ASSISTANCE. TAKE TYLENOL [id number] NE EDED AND IF NO CONTRAINDICATIONS ARE PRESENT. INCREASE ORAL HYDRATION. A WOUND CULTURE OR URINE CULTURE WAS ORDERED HERE IN THE EMERGENCY ROOM DEPARTMENT PLEASE FOLLOW-UP WITH PRIMARY CARE PROVIDER AND ADVISE THEM TO GET REPEAT PORTS FROM OUR FACILITY. IF YOU HAD ANY MARY JO WRAP/SPLINTS THAT WERE APPLIED HERE, PLEASE DO NOT REMOVE THEM UNTIL YOU SEE YOUR PRIMARY CARE OR SPECIALTY. Referrals: Referrals: GAVIN FINK MD (PCP) Time of Disposition: 11:23 KAREN FREEMAN MD Mar 04, 2025 11:24
[2025-03-04 11:29] VITALS: BP 148/67; PULSE 63; RESP 17; TEMP 98.8; O2SAT 97
--- NOTE | 2025-03-04 11:43 | NUR ---
PT STABLE AAOX4 NO C/O OF EAR PAIN STATES MILD DISCOMFORT BUT IT FEELS BETTER. PT HAS NO IV, PT GIVEN ONE RX TO DROP OFF TO PHARMACY. PT TAKEN OUT IN W/C DRIVEN HOME BY BROTHER.
--- NOTE | 2025-03-04 16:36 | EKG ---
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1950 Requested By: KAREN FREEMAN Order Number: [id number] Reading MD: Shea Sharma Measurements Intervals [place] Rate: 57 P: 76 IN: 161 QRS: -44 QRSD: 98 T: 28 QT: 480 QTc: 466 Interpretive Statements Sinus rhythm Left anterior fascicular block Low voltage, precordial leads Probable left ventricular hypertrophy Compared to ECG 03/03/2025 21:18:56 Low QRS voltage now present Atrial fibrillation no longer present Early repolarization no longer present Q waves no longer present Electronically Signed On 03-05-2025 17:03:02 CDT by Shea Sharma Please click the below link to view image of tracing.
== END 2025-03-04 11:45 | disposition home or self-care (01) ==
LOC: EDH 09:08
DX: T16.2XXA Foreign body in left ear, initial encounter (principal); E11.9 Type 2 diabetes mellitus without complications; E78.00 Pure hypercholesterolemia, unspecified; F41.9 Anxiety disorder, unspecified; I10 Essential (primary) hypertension; I44.4 Left anterior fascicular block; I48.91 Unspecified atrial fibrillation; Z79.01 Long term (current) use of anticoagulants; Z79.899 Other long term (current) drug therapy; Z88.8 Allergy status to other drugs, medicaments and biological substances; Z90.49 Acquired absence of other specified parts of digestive tract; W44.9XXA Unspecified foreign body entering into or through a natural orifice, initial encounter; Y93.89 Activity, other specified; Y92.89 Other specified places as the place of occurrence of the external cause; Y99.8 Other external cause status
CPT/HCPCS: 69209; 84484; 93005; 99283; 99284

== ENCOUNTER 2025-06-12 10:32 | Emergency (ER) | payer MEDICARE ==
[~2025-06-12] VITALS: Ht 165.1 cm; Wt 95.7 kg
[~2025-06-12 10:32] MED LIST changes: +CIPOTIC OTIC; -PRAV40TA3 PO; +PRAV40TA62 PO
--- NOTE | 2025-06-12 10:41 | ERN ---
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 SHE IS COMING IN TODAY WITH COMPLAINTS OF PALPITATION SHE HAS HAD ONSET TWO DAYS PRIOR TO ARRIVAL WITH HER HEART RATE GOING UP AND DOWN. SHE DENIES CHEST PAIN BACK PAIN NO SOB. SHE IS ON MULTIPLE MEDICATIONS FOR HYPERTENSION AND HYPERCHOLESTEROLEMIA. SHE SAYS NO NAUSEA VOMITING. SHE HAS NOT SEEN HER AGRONOMY TECHNICIAN'S IN THREE MONTHS. Allergies: Coded Allergies: amlodipine (Unverified Allergy, Unknown, 05/03/20) Home Meds Active Scripts Ciprofloxacin/Hydrocortisone (Cipro Hc Otic Suspension) 0.2 %-1 % Drops.susp, 3 DROP OTIC BID for 7 Days, #10 ML 0 Refills Prov:KAREN FREEMAN MD 03/04/25 Cephalexin Monohydrate (Keflex) 500 Mg Cap, 500 MG PO QID for 7 Days, #28 CAP Prov:EARL MONET 03/04/25 Prednisone (Prednisone) 10 Mg Tablet, 10 MG PO AD, #7 TAB 2 daily x 2 days then 1 po daily x 3 days then stop- take with food in the mourning Prov:GAVIN FINK MD 03/20/23 Calcium Carbonate/Vitamin D3 (Caltrate 600 + D Tablet) 1 Each Tablet, 1 EACH PO DAILY, #90 TAB Prov:GAVIN FINK MD 03/19/23 Linaclotide (Linzess) 72 Mcg Capsule, 72 MCG PO QODAY, #45 CAP Prov:GAVIN FINK MD 03/19/23 Hydralazine HCl (Hydralazine HCl) 50 Mg Tablet, 50 MG PO BID, #180 TAB Prov:GAVIN FINK MD 03/19/23 Metoprolol Succinate (Metoprolol Succinate) 25 Mg Tab.er.24h, 25 MG PO DAILY, #90 TAB Prov:GAVIN FINK MD 03/19/23 Losartan Potassium (Losartan Potassium) 50 Mg Tablet, 50 MG PO BID, #180 TAB Prov:GAVIN FINK MD 03/19/23 Apixaban (Eliquis) 5 Mg Tablet, 5 MG PO BID, #60 TAB 1 Refill Prov:GAVIN FINK MD 05/03/20 Pravastatin Sodium (Pravastatin Sodium) 40 Mg Tablet, 40 MG PO DAILY, #90 TAB 1 Refill Prov:GAVIN FINK MD 05/02/20 Diltiazem HCl (Diltiazem ER) 240 Mg Tab.er.24h, 240 MG PO DAILY, #90 TAB 0 Refills Prov:GAVIN FINK MD 05/02/20 Past Medical History Past Medical History: A-Fib, Diabetes-Type II, High Cholesterol, Heart Disease, Hypertension Additional Past Medical Hx: VERTIGO Surgical History: Appendectomy, Unknown Social History: Negative, Other History: Not Applicable RN Note Reviewed/Agreed w/PFSH: Yes Review of System Dictation CONSTITUTIONAL: Negative except for HPI HEAD/FACE: Negative except for HPI EENT: Negative except for HPI RESPIRATORY: Negative except for HPI palpitations GASTROINTESTINAL/ABDOMINAL: Negative except for HPI GENITOURINARY: Negative except for HPI MUSCULOSKELETAL: Negative except for HPI INTEGUMENTARY: Negative except for HPI NEUROLOGICAL/PSYCH: Negative except for HPI HEMATOLOGIC/LYMPHATIC: Negative except for HPI All Systems Negative, Except as noted above. 13 point review of systems assessed and all negative except for above. Initial Vital Sign VS Vital Signs Date Time Temp Pulse Resp B/P (MAP) Pulse Ox O2 Delivery O2 Flow Rate FiO2 06/12/25 10:36 97.9 60 16 137/61 97 Room Air 0 06/12/25 10:39 21 Physical Exam Dictation Vital Signs reviewed General Appearance: Alert, oriented x 3, no acute distress, well developed, nourished. Head and Face: non-traumatic. Eyes: PERRL, pink conjunctivas, eyelid no trauma, anterior chamber with arcus senilis. Ears: Pinnas intact and no signs of trauma or erythema ear canals clear and no discharge TM no erythema Nose: No discharge, no bleeding. Oropharynx: Mouth normal, tongue pink, pharynx clear,no erythema, tonsils no exudates, no abscesses noted, mucous membrane moist Neck: Supple, non-tender, no thyromegaly, no masses, no JVD, no bruits Breast:Deferred Chest:No tenderness, no crepitus, no paradoxical movement, no retractions Lungs:Clear, well-ventilated, symmetric, no rales, no wheezing, no rhonchi, no stridor, good breath sounds bilaterally Heart: Regular rate, regular rhythm, no murmur, no gallops Vascular: no peripheral edema, Abdomen: Soft, positive bowel sounds, nondistended, no guarding, nontender, no rebound, no masses no hepatomegaly, no splenomegaly, no Recinos's sign, no hernias. Rectal: Deferred Genital: Deferred Neurological: Normal speech, motor function intact, sensory function intact Musculoskeletal: Neck nontender, full range of motion, back nontender, full range of motion, Extremities: nontender, full range of motion Skin: Color pink, dry, no turgor, no rash, no lacerations, no abrasions, no contusions. Lymphatic: Deferred Results (Laboratory/Radiology) Laboratory/Radiology Laboratory Tests Test 06/12/25 11:00 White Blood Count 6.4 K/uL (4.8-10.8) Red Blood Count 4.69 MIL/uL (4.00-5.50) Hemoglobin 14.4 g/dL (12.0-16.0) Hematocrit 42.4 % (36-48) Mean Corpuscular Volume 90.4 fL (79-99) Mean Corpuscular Hemoglobin 30.7 pg (27.0-33.0) Mean Corpuscular Hemoglobin Concent 34.0 g/dL (32.0-36.0) Red Cell Distribution Width 13.3 % (11.0-15.5) Platelet Count 220 K/uL (130-400) Mean Platelet Volume 10.0 fL (7.5-10.5) Immature Granulocyte % (Auto) 0.5 % (0-1) Neutrophils (%) (Auto) 53.7 % (40.0-77.0) Lymphocytes (%) (Auto) 37.5 % (21.0-51.0) Monocytes (%) (Auto) 6.1 % (3.0-13.0) Eosinophils (%) (Auto) 1.6 % (0.0-8.0) Basophils (%) (Auto) 0.6 % (0.0-5.0) Neutrophils # (Auto) 3.4 K/uL (1.8-7.7) Lymphocytes # (Auto) 2.4 K/uL (1.0-4.8) Monocytes # (Auto) 0.4 K/uL (0.1-1.0) Eosinophils # (Auto) 0.10 K/uL (0.00-0.70) Basophils # (Auto) 0.04 K/uL (0.00-0.20) Absolute Immature Granulocyte (auto 0.03 K/uL (0-1) Nucleated Red Blood Cells 0.0 % (0.0-0.19) Sodium Level 141 mmol/L (136-145) Potassium Level 3.4 mmol/L (3.5-5.1) L Chloride Level 107 mmol/L (101-111) Carbon Dioxide Level 27 mmol/L (21-32) Blood Urea Nitrogen 21 mg/dL (7-18) H Creatinine 1.2 mg/dL (0.5-1.0) H Glomerular Filtration Rate Calc 47 mL/min (>90) Random Glucose 154 mg/dL (70-105) H Total Calcium 9.2 mg/dL (8.5-10.1) Magnesium Level 1.70 mg/dL (1.80-2.40) L Troponin I High Sensitivity 8 ng/L (4-50) B-Type Natriuretic Peptide 446 pg/mL (0-100) H EXAM: CR Chest, 1 View. CLINICAL HISTORY: CHEST PAIN/SOB COMPARISON: 03/03/2025. FINDINGS: LUNGS: There is no mass, infiltrate, or acute pulmonary abnormality. PLEURAL SPACES: No evidence of pleural effusion or pneumothorax. MEDIASTINUM: The cardiomediastinal silhouette is within normal limits. BONES: No aggressive appearing osseous lesion seen. IMPRESSION: No acute cardiopulmonary pathology is evident. /[place] Labs Reviewed?: Yes EKG Comment: EKG sinus bradycardia/heart rate 55/left fascicular block mild left hyper ventricular hypertrophy. Q-wave seen lead V2 ED Course ED Course Orders Procedure Category Date Status Time B-Type Natriuretic LAB 06/12/25 Complete Peptide 10:39 Cbc With Differential LAB 06/12/25 Complete 10:39 Chest 1vw RAD 06/12/25 Resulted 10:39 12 Lead Ekg Tracing- EKG 06/12/25 Logged Technical 10:39 Magnesium LAB 06/12/25 Complete 10:39 Troponin I High LAB 06/12/25 Complete Sensitivity 10:39 Basic Metabolic Panel LAB 06/12/25 Complete 10:39 Potassium Bicarb/Cit PHA 06/12/25 Complete Ac 25meq (K-Lyte Ta 12:00 Magnesium 2gm Premix PHA 06/12/25 In Process 50ml (Magnesium 2gm 12:00 Current Medications Medications (Trade) Dose Ordered Sig/Yamel Route PRN Reason Start Time Stop Time Status Last Admin Dose Admin Magnesium Sulfate 50 ml @ 0 mls/hr PROTOCOL IV 06/12/25 12:00 07/12/25 11:59 06/12/25 12:31 Potassium Bicarbonate (K-Lyte Tablet Eff 25 Meq Tablet.eff) 25 meq ONCE ONCE PO 06/12/25 12:00 06/12/25 12:01 DC 06/12/25 12:29 Vital Signs Date Time Temp Pulse Resp B/P (MAP) Pulse Ox O2 Delivery O2 Flow Rate FiO2 06/12/25 12:31 98.1 55 12 114/49 98 Room Air* 0 06/12/25 11:24 98.1 53 15 135/53 95 Room Air* 0 06/12/25 10:39 98.2 56 13 173/104 97 Room Air* 0 06/12/25 10:36 97.9 60 16 137/61 97 Room Air 0 1245/SPOKE WITH PATIENT AFTER MAGNESIUM AND POTASSIUM WAS REPLACED. SHE STATES SHE FEELS MARKEDLY IMPROVED. I TOLD HER I WOULD LIKE TO ADMITTED TO THE HOSPITAL FOR ELECTROLYTE STABILIZATION AND HAVE HER HYPERTENSION MEDICATIONS REVIEWED SHE AND HER WHO RIDE BEDSIDE REFUSED TO STAY AND SAID THEY WOULD RATHER GO HOME AND FOLLOW UP WITH HER PRIMARY CARE DOCTOR TOMORROW. I GAVE BOTH RATIONALE FOR THE ADMISSION HOWEVER THEY WOULD LIKE TO GO HOME. HEART Score Response (Comments) Value EKG: Repolarization changes 1 Age: > 65yrs (+2) 2 Risk Factors: 3+ risk factors (+2) 2 Initial Troponin: Normal limit (0) 0 Total 5 Medical Decision Making MDM MDM: DIFFERENTIAL DIAGNOSIS: ACS/AMI/ELECTROLYTE IMBALANCE/DEHYDRATION/PALPITATIONS/HYPOMAGNESEMIA/PNEUMONIA/BRONCHITIS RATIONALE: TESTS CONSIDERED AND ORDERED SECONDARY TO SHARED DECISION MAKING INCLUDE: EKG/LABS/RADIOLOGY PREVIOUS OUTSIDE RECORDS REVIEWED: OLD ER VISITS. RISK OF COMPLICATION AND/OR MORBIDITY OR MORTALITY OF PATIENT MANAGEMENT: NONE MEDICATIONS-PER MEDICATION RECONCILIATION NEED FOR HOSPITALIZATION: PATIENT DOES NOT MEET CRITERIA FOR HOSPITALIZATION. PATIENT REFUSED NEED FOR EMERGENCY MAJOR/MINOR SURGERY: NO THERE ARE NO SOCIAL CONCERNS WITH THIS PATIENT. PRESCRIPTION DRUG MANAGEMENT NONE PRESCRIPTIONS WILL INCLUDE SYMPTOMATIC CARE PATIENT'S PRIOR EXTERNAL MEDICAL RECORDS FROM OTHER ER VISITS WERE REVIEWED BY ME INDICATED. PRIOR TESTING AND RESULTS FROM PREVIOUS VISITS WERE REVIEWED. PRIOR TESTS WERE TAKEN INTO ACCOUNT WITH MEDICAL DECISION MAKING AND RESOURCE UTILIZATION, INDEPENDENT HISTORIAN/HISTORIANS WERE USED TO OBTAIN COMPLETE MEDICAL HISTORY. I INDEPENDENTLY INTERPRETED THE TEST THAT WERE PERFORMED, RESULTS WERE REVIEWED BY ME AND CONSIDERED FINDINGS ON RADIOLOGY IF ORDERED. MEDICAL MANAGEMENT AND EXAMINATION INTERPRETATION DISCUSSIONS WERE HAD BY ME WITH OTHER QUALIFIED HEALTHCARE PROFESSIONALS INDICATED FOR THE PATIENT'S CARE. DX & DISP Disposition: Discharge Departure Impression: Primary Impression: Palpitations Additional Impressions: Hypokalemia, Hypomagnesemia, Elevated brain natriuretic peptide (BNP) level, Stage 3 chronic kidney disease Condition: Stable Additional Instructions: FOLLOW-UP WITH PRIMARY CARE PROVIDER IN 1 TO 2 DAYS. TAKE MEDICATIONS DIRECTED HERE IN THE EMERGENCY ROOM. OKAY TO CONTINUE HOME MEDICATIONS UNLESS OTHERWISE DISCUSSED DURING YOUR VISIT IN THE EMERGENCY ROOM TODAY. RETURN TO YOUR NEAREST EMERGENCY ROOM IF SYMPTOMS WORSEN OR IF THERE IS NO IMPROVEMENT. CALL 911 IF YOU NEED IMMEDIATE ASSISTANCE. TAKE TYLENOL OR MOTRIN [id number] NEEDED AND IF NO CONTRAINDICATIONS ARE PRESENT. INCREASE O RAL HYDRATION. A WOUND CULTURE OR URINE CULTURE WAS ORDERED HERE IN THE EMERGENCY ROOM DEPARTMENT PLEASE FOLLOW-UP WITH PRIMARY CARE PROVIDER AND ADVISE THEM TO GET REPEAT PORTS FROM OUR FACILITY. IF YOU HAD ANY MARY JO WRAP/SPLINTS THAT WERE APPLIED HERE, PLEASE DO NOT REMOVE THEM UNTIL YOU SEE YOUR PRIMARY CARE OR SPECIALTY. CONTINUE ALL MEDICATIONS AND TREATMENTS FROM YOUR DOCTOR, FOLLOW UP WITH YOUR PRIMARY CARE DOCTOR TOMORROW FOR REVIEW OF HER HYPERTENSION MEDICATIONS. Referrals: GAVIN FINK MD (PCP) Time of Disposition: 12:46 I have reviewed the case, and I agree with, Diagnosis and Plan AILYN RAMEY NP Jun 12, 2025 10:41
[2025-06-12 11:16] LABS: IMMATURE GRANULOCYTE ABSOLUTE 0.03 K/uL (0-1); NUCLEATED RED BLOOD CELLS 0.0 % (0.0-0.19); PLATELET COUNT (AUTO) 220 K/uL (130-400); RED BLOOD CELL COUNT(AUTO) 4.69 MIL/uL (4.00-5.50); RED CELL DISTRIBUTION WIDTH 13.3 % (11.0-15.5); WHITE BLOOD COUNT (AUTO) 6.4 K/uL (4.8-10.8)
--- NOTE | 2025-06-12 11:27 | HMCIMG ---
EXAM: CR Chest, 1 View. CLINICAL HISTORY: CHEST PAIN/SOB COMPARISON: 03/03/2025. FINDINGS: LUNGS: There is no mass, infiltrate, or acute pulmonary abnormality. PLEURAL SPACES: No evidence of pleural effusion or pneumothorax. MEDIASTINUM: The cardiomediastinal silhouette is within normal limits. BONES: No aggressive appearing osseous lesion seen. IMPRESSION: No acute cardiopulmonary pathology is evident. /[place]
[2025-06-12 11:33] LABS: CREATININE 1.2 mg/dL (0.5-1.0); GLOMERULAR FILTR. RATE CALC 47.0 mL/min (>90); GLUCOSE,RANDOM 154.0 mg/dL (70-105); SODIUM SERUM 141.0 mmol/L (136-145); UREA NITROGEN, BLOOD 21.0 mg/dL (7-18)
[2025-06-12] MEDS: MAGNESIUM 2GM PREMIX 50ML 50 ML IV SCH (12:31)
[2025-06-12 14:18] VITALS: BP 138/49; PULSE 54; RESP 14; TEMP 98.3; O2SAT 99
--- NOTE | 2025-06-12 14:37 | EKG ---
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
== END 2025-06-12 14:30 | disposition home or self-care (01) ==
LOC: EDH 10:32
DX: I12.9 Hypertensive chronic kidney disease with stage 1 through stage 4 chronic kidney disease, or unspecified chronic kidney disease (principal); E11.22 Type 2 diabetes mellitus with diabetic chronic kidney disease; N18.30 Chronic kidney disease, stage 3 unspecified; R00.2 Palpitations; E87.6 Hypokalemia; E78.00 Pure hypercholesterolemia, unspecified; R79.89 Other specified abnormal findings of blood chemistry; E83.42 Hypomagnesemia; I48.91 Unspecified atrial fibrillation; Z79.01 Long term (current) use of anticoagulants; Z79.899 Other long term (current) drug therapy; Z88.8 Allergy status to other drugs, medicaments and biological substances; Z90.49 Acquired absence of other specified parts of digestive tract
CPT/HCPCS: 99285; 96365; 71045; 83735; 84484; 80048; 83880; 85025; 36415; 93005; J3475

== ENCOUNTER 2025-06-29 11:07 | Observation (INO) | payer MEDICARE ==
[~2025-06-29] VITALS: Ht 165.1 cm; Wt 92.1 kg
--- NOTE | 2025-06-29 11:28 | EKG ---
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
[2025-06-29 11:54] LABS: IMMATURE GRANULOCYTE ABSOLUTE 0.02 K/uL (0-1); NUCLEATED RED BLOOD CELLS 0.0 % (0.0-0.19); PLATELET COUNT (AUTO) 230 K/uL (130-400); RED BLOOD CELL COUNT(AUTO) 4.62 MIL/uL (4.00-5.50); RED CELL DISTRIBUTION WIDTH 13.4 % (11.0-15.5); WHITE BLOOD COUNT (AUTO) 7.0 K/uL (4.8-10.8)
[2025-06-29 12:14] LABS: ADD UA MICROSCOPIC YES; APPEARANCE,URINE TURBID (CLEAR); GLUCOSE, URINE (UA) NEGATIVE (NEGATIVE); LEUKOCYTE ESTERASE ,URINE 500 Leu/uL (NEGATIVE); NITRATE,URINE NEGATIVE (NEGATIVE); OCCULT BLOOD,URINE +- (TRACE) (NEGATIVE)
[2025-06-29 12:21] LABS: CREATINE KINASE, TOTAL 51.0 U/L (21-232); CREATININE 1.0 mg/dL (0.5-1.0); GLOMERULAR FILTR. RATE CALC 59.0 mL/min (>90); GLUCOSE,RANDOM 86.0 mg/dL (70-105); SODIUM SERUM 139.0 mmol/L (136-145); UREA NITROGEN, BLOOD 18.0 mg/dL (7-18)
--- NOTE | 2025-06-29 12:21 | HMCIMG ---
EXAM: CR Chest, 1 View. CLINICAL HISTORY: cp COMPARISON: None provided. FINDINGS: LUNGS: There is no mass, infiltrate, or acute pulmonary abnormality. PLEURAL SPACES: No pleural effusion or pneumothorax. MEDIASTINUM: The cardiomediastinal silhouette is within normal limits. BONES: No acute osseous abnormality. IMPRESSION: No acute cardiopulmonary pathology is evident. /[place]
[2025-06-29 12:38] LABS: SQUAMOUS EPITHELIAL CELL,UR Many /HPF (0-2)
[2025-06-29 13:06] VITALS: O2SAT 98
--- NOTE | 2025-06-29 13:08 | ERN ---
General Chief Complaint: Chest Pain Stated Complaint: CHEST PAIN Time Seen by MD: 11:09 Source: patient History of Present Illness Initial Comments Patient is a 75-year-old female coming in complaining of chest pain. Patient states that the chest pain has been ongoing for two days. Patient also states that she does has a history of coronary artery disease. Allergies: Coded Allergies: amlodipine (Unverified Allergy, Unknown, 05/03/20) Home Meds Active Scripts Calcium Carbonate/Vitamin D3 (Caltrate 600 + D Tablet) 1 Each Tablet, 1 EACH PO DAILY, #90 TAB Prov:GAVIN FINK MD 03/19/23 Hydralazine HCl (Hydralazine HCl) 50 Mg Tablet, 50 MG PO BID, #180 TAB Prov:GAVIN FINK MD 03/19/23 Losartan Potassium (Losartan Potassium) 50 Mg Tablet, 50 MG PO BID, #180 TAB Prov:GAVIN FINK MD 03/19/23 Apixaban (Eliquis) 5 Mg Tablet, 5 MG PO BID, #60 TAB 1 Refill Prov:GAVIN FINK MD 05/03/20 Pravastatin Sodium (Pravastatin Sodium) 40 Mg Tablet, 40 MG PO DAILY, #90 TAB 1 Refill Prov:GAVIN FINK MD 05/02/20 Diltiazem HCl (Diltiazem ER) 240 Mg Tab.er.24h, 240 MG PO DAILY, #90 TAB 0 Refills Prov:GAVIN FINK MD 05/02/20 Discontinued Scripts Ciprofloxacin/Hydrocortisone (Cipro Hc Otic Suspension) 0.2 %-1 % Drops.susp, 3 DROP OTIC BID for 7 Days, #10 ML 0 Refills Prov:KAREN FREEMAN MD 03/04/25 Cephalexin Monohydrate (Keflex) 500 Mg Cap, 500 MG PO QID for 7 Days, #28 CAP Prov:EARL MONET 03/04/25 Prednisone (Prednisone) 10 Mg Tablet, 10 MG PO AD, #7 TAB 2 daily x 2 days then 1 po daily x 3 days then stop- take with food in the mourning Prov:GAVIN FINK MD 03/20/23 Linaclotide (Linzess) 72 Mcg Capsule, 72 MCG PO QODAY, #45 CAP Prov:GAVIN FINK MD 03/19/23 Metoprolol Succinate (Metoprolol Succinate) 25 Mg Tab.er.24h, 25 MG PO DAILY, #90 TAB Prov:GAVIN FINK MD 03/19/23 Past Medical History Past Medical History: A-Fib, Diabetes-Type II, High Cholesterol, Heart Disease, Hypertension Medical History Other: VERTIGO Past Surgical History: Appendectomy, Unknown Social History Social History: Negative, Other Female( History) History: Not Applicable ROS Dictation CONSTITUTIONAL: No chills, no fever, no weakness, no diaphoresis, no malaise. HEAD/FACE: No signs of trauma. EENT: No eye pain, no blurred vision, no tearing, no double vision, no ear pain, no ear discharge, no nose pain, no nasal congestion, no throat pain, no throat swelling, no mouth pain. RESPIRATORY: No cough, no orthopnea, no SOB, no stridor, no wheezing. CARDIOVASCULAR: No chest pain, no edema, no palpitations, no syncope. GASTROINTESTINAL/ABDOMINAL: No abdominal pain, no constipation, no diarrhea, no nausea, no vomiting. GENITOURINARY: No abnormal discharge, no dysuria, no frequent urination, no h ematuria. No complaints of pain in the genitals. MUSCULOSKELETAL: No back pain, no gout, no joint pain, no joint swelling, no muscle pain, no muscle stiffness, no neck pain. INTEGUMENTARY: No change in color, no change in hair/nails, no dryness, no les ion, no lumps, no rash. NEUROLOGICAL/PSYCH: No anxiety, not depressed, no emotional problem, no headache, no numbness, no pre-existing deficit, no history of seizures, no tremors, no weakness. HEMATOLOGIC/LYMPHATIC: Not anemic, no history of blood clots, no apparent bleeding, no bruising, glands not swollen. All Systems Negative, Except as Noted. Physical Exam Physical Exam Dictation VITAL SIGNS: Reviewed. GENERAL APPEARANCE: Alert, oriented x3, no acute distress, obese. HEAD AND FACE: Non-traumatic. EYES: PERRL, pink conjunctivas, eyelid no trauma, anterior chamber clear. EARS: Pinnas intact and no signs of trauma or erythema. Ear canals clear and no discharge. TMs no erythema. NOSE: No discharge, no bleeding. OROPHARYNX: Mouth normal, teeth no caries, tongue pink. Pharynx clear, no erythema. Tonsils no exudates, no abscesses noted. Mucous membrane moist. NECK: Supple, non-tender, no thyromegaly, no masses, no JVD, no bruits. BREAST: Deferred. CHEST: No tenderness, no crepitus, no paradoxical movement, no retractions. LUNGS: Clear, well-ventilated, symmetric, no rales, no wheezing, no rhonchi, no stridor, good breath sounds bilaterally. HEART: Regular rate, regular rhythm, no murmur, no gallops. VASCULAR: No peripheral edema. ABDOMEN: Soft, positive bowel sounds, nondistended, no guarding, nontender, no rebound, no masses no hepatomegaly, no splenomegaly, no Recinos's sign, no hernias. RECTAL: Deferred. GENITAL: Deferred. NEUROLOGICAL: Normal speech, gross motor function intact, gross sensory function intact. MUSCULOSKELETAL: Neck nontender, full range of motion, back nontender, full range of motion. EXTREMITIES: Nontender, full range of motion. SKIN: Color pink, dry, no turgor, no rash, no lacerations, no abrasions, no contusions. LYMPHATICS: Deferred. Results Laboratory and Microbiology Lab and Micro Result Laboratory Tests Test 06/29/25 11:36 06/29/25 11:56 White Blood Count 7.0 K/uL (4.8-10.8) Red Blood Count 4.62 MIL/uL (4.00-5.50) Hemoglobin 14.0 g/dL (12.0-16.0) Hematocrit 41.2 % (36-48) Mean Corpuscular Volume 89.2 fL (79-99) Mean Corpuscular Hemoglobin 30.3 pg (27.0-33.0) Mean Corpuscular Hemoglobin Concent 34.0 g/dL (32.0-36.0) Red Cell Distribution Width 13.4 % (11.0-15.5) Platelet Count 230 K/uL (130-400) Mean Platelet Volume 9.7 fL (7.5-10.5) Immature Granulocyte % (Auto) 0.3 % (0-1) Neutrophils (%) (Auto) 43.3 % (40.0-77.0) Lymphocytes (%) (Auto) 46.9 % (21.0-51.0) Monocytes (%) (Auto) 7.2 % (3.0-13.0) Eosinophils (%) (Auto) 1.7 % (0.0-8.0) Basophils (%) (Auto) 0.6 % (0.0-5.0) Neutrophils # (Auto) 3.0 K/uL (1.8-7.7) Lymphocytes # (Auto) 3.3 K/uL (1.0-4.8) Monocytes # (Auto) 0.5 K/uL (0.1-1.0) Eosinophils # (Auto) 0.12 K/uL (0.00-0.70) Basophils # (Auto) 0.04 K/uL (0.00-0.20) Absolute Immature Granulocyte (auto 0.02 K/uL (0-1) Nucleated Red Blood Cells 0.0 % (0.0-0.19) Sodium Level 139 mmol/L (136-145) Potassium Level 3.5 mmol/L (3.5-5.1) Chloride Level 105 mmol/L (101-111) Carbon Dioxide Level 27 mmol/L (21-32) Blood Urea Nitrogen 18 mg/dL (7-18) Creatinine 1.0 mg/dL (0.5-1.0) Glomerular Filtration Rate Calc 59 mL/min (>90) Random Glucose 86 mg/dL (70-105) Total Calcium 9.7 mg/dL (8.5-10.1) Magnesium Level 2.10 mg/dL (1.80-2.40) Total Creatine Kinase 51 U/L (21-232) # Troponin I High Sensitivity 8 ng/L (4-50) Urine Color STRAW (YELLOW) Urine Appearance TURBID (CLEAR) Urine pH 5.5 (5.0-8.0) Urine Specific [place] 1.007 (1.001-1.031) Urine Protein NEGATIVE mg/dL (NEGATIVE) Urine Glucose (UA) NEGATIVE mg/dL (NEGATIVE) Urine Ketones NEGATIVE mg/dL (NEGATIVE) Urine Occult Blood +- (TRACE) (NEGATIVE) H Urine Nitrate NEGATIVE (NEGATIVE) Urine Bilirubin NEGATIVE mg/dL (NEGATIVE) Urine Urobilinogen 0.2 mg/dL (0.2-1.0) Urine Leukocyte Esterase 500 [place]/uL (NEGATIVE) H Urine RBC 11-25 /HPF (0-1) H Urine WBC TNTC /HPF (0-1) H Urine WBC Clumps (Auto) 2-5 /HPF (0-1) H Urine Squamous Epithelial Cells Many /HPF (0-2) H Urine Bacteria Moderate /HPF (None Seen) H Labs Reviewed?: Yes MDM MDM: Differential diagnosis: Chest pain, UTI, Rationale: Tests considered and ordered secondary to shared decision making include: labs, ECG and radiology Previous outside records reviewed: Old ER visits. Risk of complication and/or morbidity or mortality of patient management: None Medications-Per medication reconciliation Need for hospitalization: Patient does meet criteria for hospitalization. Need for emergency major/minor surgery: No There are no social concerns with this patient. Prescription drug management Prescriptions will include symptomatic care Patient's prior external medical records from other ER visits were reviewed by me as indicated. Prior testing and results from previous visits were reviewed. Prior tests were taken into account with medical decision making and resource utilization, independent historian/historians were used to obtain complete medical history. I independently interpreted the test that were performed, results were reviewed by me and considered findings on radiology if ordered. Medical management and examination interpretation discussions were had by me with other qualified healthcare professionals as indicated for the patient's care. ED Course Orders Procedure Category Date Status Time Cbc With Differential LAB 06/29/25 Complete 11:12 Chest 1vw RAD 06/29/25 Resulted 11:12 12 Lead Ekg Tracing- EKG 06/29/25 Complete Technical 11:12 Magnesium LAB 06/29/25 Complete 11:12 Creatine Kinase, Total LAB 06/29/25 Complete 11:12 Troponin I High LAB 06/29/25 Complete Sensitivity 11:12 Urinalysis Profile LAB 06/29/25 Complete 11:12 Basic Metabolic Panel LAB 06/29/25 Complete 11:12 Culture Urine NEDA 06/29/25 In Process 12:15 Troponin I High LAB 06/29/25 Logged Sensitivity 13:08 Ceftriaxone 1g Vial PHA 06/29/25 In Process (Rocephine 1g Inj) 13:30 Nitroglycerin 0.4mg PHA 06/29/25 In Process Sl Tab (Nitrostat) 13:30 Current Medications Medications (Trade) Dose Ordered Sig/Yamel Route PRN Reason Start Time Stop Time Status Last Admin Dose Admin Ceftriaxone Sodium (ROCEphine 1G INJ) 1 gm ONCE ONCE IVPB 06/29/25 13:30 06/29/25 13:31 Nitroglycerin (Nitrostat) 0.4 mg Q5M PRN SL CHEST PAIN 06/29/25 13:30 Vital Signs Date Time Temp Pulse Resp B/P (MAP) Pulse Ox O2 Delivery O2 Flow Rate FiO2 06/29/25 13:06 58 12 152/56 98 Room Air* 0 21 06/29/25 11:42 51 16 153/60 96 Room Air* 0 21 06/29/25 11:09 97.7 54 20 160/60 96 Room Air DX & DISP Disposition: Inpatient Decision to Admit Time: 13:17 Departure Impression: Primary Impression: Urinary tract infection Additional Impression: Acute chest pain Condition: Stable Referrals: GAVIN FINK MD (PCP) KAREN FREEMAN MD Jun 29, 2025 13:08
[2025-06-29] MEDS ORDERED: ESCI-8 PO (13:22)
[2025-06-29] MEDS ORDERED: HYDR25TA PO (13:22)
[2025-06-29] MEDS ORDERED: CALC1TAB2 PO (13:22)
[2025-06-29] MEDS ORDERED: HYDR50TA37 PO (13:22)
[2025-06-29] MEDS ORDERED: BUSP5TAB3 PO (13:22)
[2025-06-29] MEDS ORDERED: METO-391 PO (13:22)
[2025-06-29] MEDS ORDERED: POTA-200 PO (13:22)
[2025-06-29] MEDS ORDERED: MAGN400T53 PO (13:22)
[2025-06-29] MEDS ORDERED: NITROGLYCERIN 0.4 MG SL TAB SL PRN (13:30)
--- NOTE | 2025-06-29 14:08 | NUR ---
DCP:HOME Pt currently lives at home with her brother. Pt does not report any insecurities with food, snf, and/or utilities. Pt does not have any DME, home health, or provider services. Pt states that she can complete ADLs independently. PCP is Dr. Mira Irwin and uses [facility] for any RX needs. At [place] pt will want to go home and family can assist with transportation. Addendum: 06/29/25 at 1411 by SYBIL MORENO SS Amended: Links added.
[2025-06-29] MEDS ORDERED: PRAV40TA62 PO (16:17)
[2025-06-29] MEDS: NITROGLYCERIN 1GM OINT 1 INCH/1GM TD ONE (17:42)
--- NOTE | 2025-06-29 17:53 | HP ---
HISTORY AND PHYSICAL Date of Visit: Jun 29, 2025 Time of Visit: 17:52 ADMISSION DATE: Jun 29, 2025 at 13:14 CC: CP/ANXIETY HPI: Patient is a 75-year-old female coming in complaining of chest pain. Patient states that the chest pain has been ongoing for two days and is located mid sternum and posterior thoracic back area and described as a tightness. No fever or chills cough or congestion. No radiation, diaphoresis, SOB or palpitations or leg swelling. Patient also states that she does has a history of coronary artery disease and stays home alone all day and worries alot and has been under much stress. She has been recently started on lexapro a few weeks ago but she only took one dose and feels it made her more anxious and did not take any longer. PAST MEDICAL HISTORY: MIXED LIPIDS ALLERGIC RHINITIS HYPERTENSIVE RENAL DISEASE / CKD 3A W/O CHF NEG STRESS TEST 2019 P-AFIB W SECONDARY HYPERCOAGULABLE STATE ANTI COAGULATION WITH ELIQUIS OTHER SPECIFIED DISORDERS OF ARTERIES AND ARTERIOLES RELATED TO CAROTID DISEASE ATHEROSCLEROSIS OF AORTA STEFANIE SOCIAL HISTORY: LIVES LOCALLY, NO ALCOHOL TOBACCO OR DRUG ABUSE FAMILY HISTORY: Patient History: Cardiovascular disease FATHER Hypertension MOTHER FATHER BROTHER BROTHER Allergies: Coded Allergies: amlodipine (Unverified Allergy, Unknown, 05/03/20) Scheduled Apixaban (Eliquis), 5 MG PO BID Buspirone HCl (Buspirone HCl), 5 MG PO BID Calcium Carbonate/Vitamin D3 (Caltrate 600 + D Tablet), 1 EACH PO BID Diltiazem HCl (Diltiazem ER), 240 MG PO DAILY Hydralazine HCl (Hydralazine HCl), 50 MG PO TID Hydrochlorothiazide (Hydrochlorothiazide), 25 MG PO DAILY Levofloxacin (Levofloxacin), 1 TAB PO DAILY Losartan Potassium (Losartan Potassium), 50 MG PO BID Magnesium Oxide (Magnesium Oxide), 400 MG PO DAILY Metoprolol Succinate (Metoprolol Succinate), 50 MG PO BID Potassium Chloride (Potassium Chloride), 10 MEQ PO DAILY Pravastatin Sodium (Pravastatin Sodium), 1 TAB PO HS, (Reported) Scheduled PRN Tizanidine HCl (Tizanidine HCl), 1 TAB PO HS PRN for OTHER [SEE ORDER COMMENTS] Discontinued Medications Buspirone HCl (Buspirone HCl), 5 MG PO BID PRN for ANXIETY Discontinued Reason: Prescription changed Cephalexin Monohydrate (Keflex), 500 MG PO QID Ciprofloxacin/Hydrocortisone (Cipro Hc Otic Suspension), 3 DROP OTIC BID Escitalopram Oxalate (Escitalopram Oxalate), 10 MG PO DAILY Linaclotide (Linzess), 72 MCG PO QODAY Metoprolol Succinate (Metoprolol Succinate), 25 MG PO DAILY Pravastatin Sodium (Pravastatin Sodium), 40 MG PO DAILY Prednisone (Prednisone), 10 MG PO AD Review of Systems Normal Constitutional:, Normal Eyes:, Normal Ear/Nose/Mouth/Throat, Normal Respiratory:, Normal Gastrointestinal:, Normal Integumentary:, Normal Musculoskeletal:, Normal Neurological:, Normal Psychological:, Normal Endocrine:, Normal Hematologic/Lymphatic:, Normal Allergic/Immunologic:; Abnormal Cardiovascular: (ATYPICAL CHEST PAIN), Abnormal Genitourinary: (LEFT FLANK PAIN) Physical Exam Vital Signs Vital Signs Date Time Temp Pulse Resp B/P (MAP) Pulse Ox O2 Delivery O2 Flow Rate FiO2 06/29/25 11:09 97.7 54 20 160/60 96 Room Air 06/29/25 11:42 0 21 Appearance: Obese Eyes: Clear, PERRL, EOM Normal Ear/Nose/Mouth/Throat: Landmarks WNL, Hearing WNL, Oropharynx WNL Cardiovascular: PMI WNL, Regular Rate, Regular Rhythm Respiratory: Lungs clear G.I.: Normal bowel sounds, No rebound tenderness, Abnormal (LEFT FLANK TENDERNESS) Musculoskeletal: Gait WNL, Normal ROM, Strength/Tone WNL Skin: No rash/ulcers Neurology: Nerves I-XII intact, Sensation WNL Psychology: Insight WNL, Orientation WNL, Memory WNL, Abnormal (VERY ANXIOUS) Diagnostics Laboratory Tests Test 06/29/25 11:36 06/29/25 11:56 06/29/25 13:21 Range/Units White Blood Count 7.0 4.8-10.8 K/uL Red Blood Count 4.62 4.00-5.50 MIL/uL Hemoglobin 14.0 12.0-16.0 g/dL Hematocrit 41.2 36-48 % Mean Corpuscular Volume 89.2 79-99 fL Mean Corpuscular Hemoglobin 30.3 27.0-33.0 pg Mean Corpuscular Hemoglobin Concent 34.0 32.0-36.0 g/dL Red Cell Distribution Width 13.4 11.0-15.5 % Platelet Count 230 130-400 K/uL Mean Platelet Volume 9.7 7.5-10.5 fL Immature Granulocyte % (Auto) 0.3 0-1 % Neutrophils (%) (Auto) 43.3 40.0-77.0 % Lymphocytes (%) (Auto) 46.9 21.0-51.0 % Monocytes (%) (Auto) 7.2 3.0-13.0 % Eosinophils (%) (Auto) 1.7 0.0-8.0 % Basophils (%) (Auto) 0.6 0.0-5.0 % Neutrophils # (Auto) 3.0 1.8-7.7 K/uL Lymphocytes # (Auto) 3.3 1.0-4.8 K/uL Monocytes # (Auto) 0.5 0.1-1.0 K/uL Eosinophils # (Auto) 0.12 0.00-0.70 K/uL Basophils # (Auto) 0.04 0.00-0.20 K/uL Absolute Immature Granulocyte (auto 0.02 0-1 K/uL Nucleated Red Blood Cells 0.0 0.0-0.19 % Sodium Level 139 136-145 mmol/L Potassium Level 3.5 3.5-5.1 mmol/L Chloride Level 105 101-111 mmol/L Carbon Dioxide Level 27 21-32 mmol/L Blood Urea Nitrogen 18 7-18 mg/dL Creatinine 1.0 0.5-1.0 mg/dL Glomerular Filtration Rate Calc 59 >90 mL/min Random Glucose 86 70-105 mg/dL Total Calcium 9.7 8.5-10.1 mg/dL Magnesium Level 2.10 1.80-2.40 mg/dL Total Creatine Kinase 51 21-232 U/L Troponin I High Sensitivity 8 10 4-50 ng/L Urine Color STRAW YELLOW Urine Appearance TURBID CLEAR Urine pH 5.5 5.0-8.0 Urine Specific Beattie 1.007 1.001-1.031 Urine Protein NEGATIVE NEGATIVE mg/dL Urine Glucose (UA) NEGATIVE NEGATIVE mg/dL Urine Ketones NEGATIVE NEGATIVE mg/dL Urine Occult Blood +- (TRACE) NEGATIVE Urine Nitrate NEGATIVE NEGATIVE Urine Bilirubin NEGATIVE NEGATIVE mg/dL Urine Urobilinogen 0.2 0.2-1.0 mg/dL Urine Leukocyte Esterase 500 NEGATIVE Wayne/uL Urine RBC 11-25 0-1 /HPF Urine WBC TNTC 0-1 /HPF Urine WBC Clumps (Auto) 2-5 0-1 /HPF Urine Squamous Epithelial Cells Many 0-2 /HPF Urine Bacteria Moderate None Seen /HPF Assessment/Plan Assessment/Plan ASSESSMENT: THIS IS A 75 YR OLD WOMAN WITH HISTORY OF MIXED LIPIDS ALLERGIC RHINITIS HYPERTENSIVE RENAL DISEASE / CKD 3A W/O CHF NEG STRESS TEST 2019 P-AFIB W SECONDARY HYPERCOAGULABLE STATE ANTI COAGULATION WITH ELIQUIS OTHER SPECIFIED DISORDERS OF ARTERIES AND ARTERIOLES RELATED TO CAROTID DISEASE ATHEROSCLEROSIS OF AORTA STEFANIE SHE PRESENTED WITH ATYPICAL CHEST PAINS AND EVIDENCE OF ACUTE PYELONEPHRITIS PLAN: ADMIT FOR OBSERVATION TELEMETRY MONITORING SERIAL CARDIAC ENZYMES ANTI - ANXIOLYTICS PRN IVF HYDRATION ANALGESICS PRN STARTED ON ROCEPHINE BLOOD AND URINE CULTURES ADVANCE DIET AND EXERCISE TOLERATED SUPPORTIVE MEASURES GAVIN FINK MD Jun 29, 2025 17:53
[2025-06-29] MEDS ORDERED: LACTULOSE 20 GM/30 ML UDCUP PO PRN (18:00)
[2025-06-29] MEDS ORDERED: MAGNESIUM 2GM PREMIX 50ML 50 ML IV PRN (18:00)
[2025-06-29] MEDS ORDERED: PoTASSium chloRIDE 20MEQ ER 20 MEQ ERTAB PO PRN (18:00)
[2025-06-29] MEDS ORDERED: PoTASSium chl 10% ELIXIR 20MEQ 20 MEQ/15 ML UDCUP PO PRN (18:00)
[2025-06-29 20:00] VITALS: BP 133/69; PULSE 76; RESP 18; TEMP 98.4
[2025-06-30 00:04] VITALS: BP 127/84; PULSE 72; RESP 16; TEMP 98.2
[2025-06-30] MEDS: MAG/ALUM/SIMETH 30 ML UDCUP PO PRN (00:23)
[2025-06-30 04:00] VITALS: BP 97/60; PULSE 63; RESP 14; TEMP 97.7
[2025-06-30 08:00] VITALS: BP 137/84; PULSE 55; RESP 14; TEMP 98.1
[2025-06-30] MEDS ORDERED: LEVO250T75 PO (09:44)
[2025-06-30] MEDS ORDERED: BUSP5TAB3 PO (09:44)
[2025-06-30] MEDS ORDERED: TIZA-194 PO (09:46)
[2025-06-30] MEDS: MAGNESIUM OXIDE 400 MG TABLET PO SCH (10:28)
[2025-06-30] MEDS: PoTASSium chloRIDE 10MEQ SR 10 MEQ/TAB TAB.SR.24H PO SCH (10:30)
[2025-06-30 11:45] VITALS: BP 130/61; PULSE 75; RESP 17; TEMP 98.3
--- NOTE | 2025-06-30 11:46 | NUR ---
PATIENT WAS DISCHARGED TO HER HOME. PATIENT WAS GIVEN ALL DISCHARGE INSTRUCTIONS AND STATED SHE UNDERSTOOD WHAT WAS EXPLAINED. PATIENT'S IV WAS REMOVED WITH CATHETER INTACT. PATIENT WAS TRANSPORTED VIA WHEEL CHAIR WITH ALL HER BELONGINGS TO ENTER A PRIVATE VEHICLE.
--- NOTE | 2025-06-30 15:41 | DS ---
DISCHARGE SUMMARY Date of Visit: Jun 30, 2025 Time of Visit: 15:41 ADMISSION DATE: Jun 29, 2025 at 13:14 DISCHARGE DATE: Jun 30, 2025 ATTENDED PHYSICIAN: Mira Irwin MD DISCHARGE DIAGNOSIS: ATYPICAL CHEST PAINS RELATED TO MUSCULOSKELETAL / STEFANIE ACUTE PYELONEPHRITIS MIXED LIPIDS ALLERGIC RHINITIS HYPERTENSIVE RENAL DISEASE / CKD 3A W/O CHF NEG STRESS TEST 2019 P-AFIB W SECONDARY HYPERCOAGULABLE STATE ANTI COAGULATION WITH ELIQUIS OTHER SPECIFIED DISORDERS OF ARTERIES AND ARTERIOLES RELATED TO CAROTID DISEASE ATHEROSCLEROSIS OF AORTA STEFANIE SUPERVISOR BENZENE REFINING(S): NONE PROCEDURES: NONE RADIOLOGY: CR Chest, 1 View FINDINGS: LUNGS: There is no mass, infiltrate, or acute pulmonary abnormality. PLEURAL SPACES: No pleural effusion or pneumothorax. MEDIASTINUM: The cardiomediastinal silhouette is within normal limits. BONES: No acute osseous abnormality. IMPRESSION: No acute cardiopulmonary pathology is evident. HOSPITAL COURSE: THIS IS A 75 YR OLD WOMAN WITH THE ABOVE PMH WHO PRESENTED WITH ATYPICAL CHEST PAINS THOUGHT TO BE RELATED TO MUSCULOSKELETAL & STEFANIE AND ACUTE PYELONEPHRITIS. SHE WAS RULED OUT FOR AN ACUTE ME AND HAD RESOLUTION OF HER CHEST PAINS. SHE HAD A NEGATIVE STRESS TEST IN THE PAST AND HER SYMPTOMS DID NOT SEEM TO BE CARDIAC SO A FOLLOW UP STRESS TEST WAS NOT DONE. SHE WAS TREATED FOR ANTIBIOTICS FOR AN ACUTE PYELONEPHRITIS AND RESPONDED WELL. HER SYMPTOMS WERE THOUGHT TO BE MORE RELATED TO STRESS AND ANXIETY WITH MUSCULOSKELETAL COMPONENT. SHE HAD RECENTLY BEEN STARTED ON LEXAPRO BUT DID NOT TAKE DUE TO FEAR OF SIDE EFFECTS. SHE IS TOLERANT TO BUSPAR BUT HAD NOT BEEN TAKING IT AND SHE WAS ENCOURAGED TO TAKE IT SCHEDULED BID AND TID PRN. SHE ADMITTED TO HAVING ALOT OF STEFANIE AND WAS GIVEN ALOT OF REASSURANCE THAT HER SYMPTOMS DID NOT APPER TO BE CARDIAC IN NATURE AFTER HER CARDIAC ENZYMES WERE ALL NEGATIVE AND REVIEWED HER PREVIOUS NEGATIVE STRESS TEST WITH HER. WE ALSO DISCUSSED OUTPATIENT MANAGEMENT OF HER STEFANIE AND SHE AGREED TO CONTINUE TO FINE TUNE HER SYMPTOMS AND WAS GIVEN RESOURCES TO CALL ON A DAILY BASIS NEED. DISCUSSED REFERRAL TO COUNSELLING AND REFERRAL TO OUTPATIENT PROGRAMS OFFERED BY HER INSURANCE TO HELP WITH THE PROCESS. SHE WAS THEN DISCHARGED IN STABLE CONDITION THE FOLLOWING DAY. DIET: HEART HEALTHY ACTIVITY: RESUME PREVIOUS ACTIVITY CONDITION: STABLE EQUIPMENT: NONE FOLLOW UP APPOINTMENT(S): DR IRWIN IN 2-5 DAYS DISPOSITION: HOME CODE STATUS: FULL MEDICATION RECONCILIATION : Home Medications were reconciled with hospital medications upon discharge and discussed with patient and/or responsible constitution party. LEVAQUIN 250 MG PO DAILY X 5 DAYS TIZANIDINE 2 MG PO Q HS PRN STOPPED ESCITALOPRAM SCHEDULED BUSPAR 5 MG PO BID AND ADDITIONAL TID PRN ^ Home Meds Active Scripts Tizanidine HCl (Tizanidine HCl) 2 Mg Tablet, 1 TAB PO HS PRN for OTHER [SEE ORDER COMMENTS] for 30 Days, #30 TAB 0 Refills prn chest or back muscle spasm Prov:MIRA IRWIN MD 06/30/25 Levofloxacin (Levofloxacin) 250 Mg Tablet, 1 TAB PO DAILY for 5 Days, #5 TAB 0 Refills Prov:MIRA IRWIN MD 06/30/25 Buspirone HCl (Buspirone HCl) 5 Mg Tablet, 5 MG PO BID for 90 Days, #90 TAB Prov:MIRA IRWIN MD 06/30/25 Potassium Chloride (Potassium Chloride) 10 Meq Tab.er.prt, 10 MEQ PO DAILY for 90 Days, #90 TAB Prov:MIRA IRWIN MD 06/29/25 Metoprolol Succinate (Metoprolol Succinate) 50 Mg Tab.er.24h, 50 MG PO BID for 90 Days, #180 TAB Prov:MIRA IRWIN MD 06/29/25 Magnesium Oxide (Magnesium Oxide) 400 Mg Tablet, 400 MG PO DAILY for 90 Days, #90 TAB Prov:MIRA IRWIN MD 06/29/25 Hydrochlorothiazide (Hydrochlorothiazide) 25 Mg Tablet, 25 MG PO DAILY for 90 Days, #90 TAB Prov:MIRA IRWIN MD 06/29/25 Calcium Carbonate/Vitamin D3 (Caltrate 600 + D Tablet) 600 Mg Calcium-20 Mcg (800 Unit) Tablet, 1 EACH PO BID for 90 Days, #180 TAB Prov:MIRA IRWIN MD 06/29/25 Hydralazine HCl (Hydralazine HCl) 50 Mg Tablet, 50 MG PO TID for 90 Days, #270 TAB Prov:MIRA IRWIN MD 06/29/25 Losartan Potassium (Losartan Potassium) 50 Mg Tablet, 50 MG PO BID, #180 TAB Prov:MIRA IRWIN MD 03/19/23 Apixaban (Eliquis) 5 Mg Tablet, 5 MG PO BID, #60 TAB 1 Refill Prov:MIRA IRWIN MD 05/03/20 Diltiazem HCl (Diltiazem ER) 240 Mg Tab.er.24h, 240 MG PO DAILY, #90 TAB 0 Refills Prov:MIRA IRWIN MD 05/02/20 Reported Medications Pravastatin Sodium (Pravastatin Sodium) 40 Mg Tablet, 1 TAB PO HS for 30 Days, #30 TAB 0 Refills 06/29/25 Discontinued Scripts Escitalopram Oxalate (Escitalopram Oxalate) 10 Mg Tablet, 10 MG PO DAILY for 90 Days, #90 TAB Prov:MIRA IRWIN MD 06/29/25 Buspirone HCl (Buspirone HCl) 5 Mg Tablet, 5 MG PO BID PRN for ANXIETY for 90 Days, #90 TAB Prov:MIRA IRWIN MD 06/29/25 Ciprofloxacin/Hydrocortisone (Cipro Hc Otic Suspension) 0.2 %-1 % Drops.susp, 3 DROP OTIC BID for 7 Days, #10 ML 0 Refills Prov:KAREN FREEMAN MD 03/04/25 Cephalexin Monohydrate (Keflex) 500 Mg Cap, 500 MG PO QID for 7 Days, #28 CAP Prov:EARL MONET 03/04/25 Prednisone (Prednisone) 10 Mg Tablet, 10 MG PO AD, #7 TAB 2 daily x 2 days then 1 po daily x 3 days then stop- take with food in the mourning Prov:MIRA IRWIN MD 03/20/23 Linaclotide (Linzess) 72 Mcg Capsule, 72 MCG PO QODAY, #45 CAP Prov:MIRA IRWIN MD 03/19/23 Metoprolol Succinate (Metoprolol Succinate) 25 Mg Tab.er.24h, 25 MG PO DAILY, #90 TAB Prov:MIRA IRWIN MD 03/19/23 Pravastatin Sodium (Pravastatin Sodium) 40 Mg Tablet, 40 MG PO DAILY, #90 TAB 1 Refill Prov:MIRA IRWIN MD 05/02/20 MIRA IRWIN MD Jun 30, 2025 15:41
== END 2025-06-30 11:30 | disposition home or self-care (01) ==
LOC: EDH 11:07 → EDHIP 13:14
PROVIDERS: ADMIT Internal Medicine; ATTEND Internal Medicine
DX: R07.89 Other chest pain (principal); N10 Acute pyelonephritis; J30.9 Allergic rhinitis, unspecified; I13.10 Hypertensive heart and chronic kidney disease without heart failure, with stage 1 through stage 4 chronic kidney disease, or unspecified chronic kidney disease; E11.22 Type 2 diabetes mellitus with diabetic chronic kidney disease; N18.31 Chronic kidney disease, stage 3a; F41.1 Generalized anxiety disorder; N39.0 Urinary tract infection, site not specified; I70.0 Atherosclerosis of aorta; D68.69 Other thrombophilia; I48.0 Paroxysmal atrial fibrillation; I25.10 Atherosclerotic heart disease of native coronary artery without angina pectoris; E78.00 Pure hypercholesterolemia, unspecified; Z88.5 Allergy status to narcotic agent; Z79.899 Other long term (current) drug therapy; Z90.49 Acquired absence of other specified parts of digestive tract
CPT/HCPCS: 96365; 99285; 82550; 83735; 84484 ×4; 80048; 85025; 87040 ×2; 87086; 81001; 36415; 71045; 93005; G0378 ×17; J0696

== ENCOUNTER → 2025-09-07 | Outpatient (CLI) | payer MEDICARE ==
[~2025-09-07] MED LIST changes: +BUSP5TAB3 PO; -CEPH500B PO; -CIPOTIC OTIC; +HYDR25TA PO; +LEVO250T75 PO; -LINA72CA PO; +MAGN400T53 PO; +METO-391 PO; -METO-408 PO; +POTA-200 PO; -PRED10TA3 PO; +TIZA-194 PO
== END | disposition home or self-care (01) ==
LOC: RAH 09:06
PROVIDERS: ATTEND Internal Medicine
DX: Z12.31 Encounter for screening mammogram for malignant neoplasm of breast (principal)
CPT/HCPCS: 77067

== ENCOUNTER 2025-10-23 17:41 | Observation (INO) | payer MEDICARE ==
[~2025-10-23] VITALS: Ht 162.6 cm; Wt 90.3 kg
--- NOTE | 2025-10-23 17:49 | ERN ---
ED Note History of Present Illness Stated Complaint: PALPITATIONS/ SOB Chief Complaint: Palpitations Time Seen by : 17:42 Dictation: PATIENT IS A 75-YEAR-OLD FEMALE COMING IN TODAY WITH COMPLAINTS OF HEART PALPITATIONS ONSET LAST WEEK. SHE DENIES CHEST PRESSURE PAIN NO REFERRED PAIN NO BACK PAIN NO JAW PAIN NO ARM PAIN. SHE STATES SHE HAS SEEN HER PRIMARY CARE DOCTOR LAST WEEK WHO CENTER FOR A HEART MONITOR AND SHE HAS TO TURN IT IN TOMORROW TO HER PHYSICIAN. NO NAUSEA VOMITING. SHE DOES HAVE A HISTORY OF ATRIAL FIBRILLATION. SHE ALSO STATES SHE HAS HAD SHORTNESS A BREATH ON EXERTION FOR THE LAST 7-10 DAYS. STATES HIS GETTING WORSE THIS IS DESPITE HER VISITS TO HER DOCTOR AND THE MONITOR. Allergies: Coded Allergies: amlodipine (Unverified Allergy, Unknown, 05/03/20) Home Meds Active Scripts Tizanidine HCl (Tizanidine HCl) 2 Mg Tablet, 1 TAB PO HS PRN for OTHER [SEE ORDER COMMENTS] for 30 Days, #30 TAB 0 Refills prn chest or back muscle spasm Prov:GAVIN FINK MD 06/30/25 Levofloxacin (Levofloxacin) 250 Mg Tablet, 1 TAB PO DAILY for 5 Days, #5 TAB 0 Refills Prov:GAVIN FINK MD 06/30/25 Buspirone HCl (Buspirone HCl) 5 Mg Tablet, 5 MG PO BID for 90 Days, #90 TAB Prov:GAVIN FINK MD 06/30/25 Potassium Chloride (Potassium Chloride) 10 Meq Tab.er.prt, 10 MEQ PO DAILY for 90 Days, #90 TAB Prov:GAVIN FINK MD 06/29/25 Metoprolol Succinate (Metoprolol Succinate) 50 Mg Tab.er.24h, 50 MG PO BID for 90 Days, #180 TAB Prov:GAVIN FINK MD 06/29/25 Magnesium Oxide (Magnesium Oxide) 400 Mg Tablet, 400 MG PO DAILY for 90 Days, #90 TAB Prov:GAVIN FINK MD 06/29/25 Hydrochlorothiazide (Hydrochlorothiazide) 25 Mg Tablet, 25 MG PO DAILY for 90 Days, #90 TAB Prov:GAVIN FINK MD 06/29/25 Calcium Carbonate/Vitamin D3 (Caltrate 600 + D Tablet) 600 Mg Calcium-20 Mcg (800 Unit) Tablet, 1 EACH PO BID for 90 Days, #180 TAB Prov:GAVIN FINK MD 06/29/25 Hydralazine HCl (Hydralazine HCl) 50 Mg Tablet, 50 MG PO TID for 90 Days, #270 TAB Prov:GAVIN FINK MD 06/29/25 Losartan Potassium (Losartan Potassium) 50 Mg Tablet, 50 MG PO BID, #180 TAB Prov:GAVIN FINK MD 03/19/23 Apixaban (Eliquis) 5 Mg Tablet, 5 MG PO BID, #60 TAB 1 Refill Prov:GAVIN FINK MD 05/03/20 Diltiazem HCl (Diltiazem ER) 240 Mg Tab.er.24h, 240 MG PO DAILY, #90 TAB 0 Refills Prov:GAVIN FINK MD 05/02/20 Reported Medications Pravastatin Sodium (Pravastatin Sodium) 40 Mg Tablet, 1 TAB PO HS for 30 Days, #30 TAB 0 Refills 06/29/25 Past Medical History Past Medical History: A-Fib, Diabetes-Type II, High Cholesterol, Heart Disease, Hypertension Additional Past Medical Hx: VERTIGO Surgical History: Appendectomy, Unknown Social History: Negative, Other History: Not Applicable RN Note Reviewed/Agreed w/PFSH: Yes Review of System Dictation CONSTITUTIONAL: NEGATIVE EXCEPT FOR HPI HEAD/FACE: NEGATIVE EXCEPT FOR HPI EENT: NEGATIVE EXCEPT FOR HPI RESPIRATORY: NEGATIVE EXCEPT FOR HPI PALPITATIONS GASTROINTESTINAL/ABDOMINAL: NEGATIVE EXCEPT FOR HPI GENITOURINARY: NEGATIVE EXCEPT FOR HPI MUSCULOSKELETAL: NEGATIVE EXCEPT FOR HPI INTEGUMENTARY: NEGATIVE EXCEPT FOR HPI NEUROLOGICAL/PSYCH: NEGATIVE EXCEPT FOR HPI HEMATOLOGIC/LYMPHATIC: NEGATIVE EXCEPT FOR HPI ALL SYSTEMS NEGATIVE, EXCEPT NOTED ABOVE. 13 POINT REVIEW OF SYSTEMS ASSESSED AND ALL NEGATIVE EXCEPT FOR ABOVE. Initial Vital Sign VS Vital Signs Date Time Temp Pulse Resp B/P (MAP) Pulse Ox O2 Delivery O2 Flow Rate FiO2 10/23/25 17:42 99.0 81 24 89/64 97 Room Air 0 10/23/25 18:51 21 Physical Exam Dictation VITAL SIGNS REVIEWED GENERAL APPEARANCE: ALERT, ORIENTED X 3, NO ACUTE DISTRESS, WELL DEVELOPED, NOURISHED. ANXIOUS 0/10 PAIN HEAD AND FACE: NON-TRAUMATIC. EYES: PERRL, PINK CONJUNCTIVAS, EYELID NO TRAUMA, ANTERIOR CHAMBER WITH ARCUS SENILIS. EARS: PINNAS INTACT AND NO SIGNS OF TRAUMA OR ERYTHEMA EAR CANALS CLEAR AND NO DISCHARGE TM NO ERYTHEMA NOSE: NO DISCHARGE, NO BLEEDING. OROPHARYNX: MOUTH NORMAL, TONGUE PINK, PHARYNX CLEAR,NO ERYTHEMA, TONSILS NO EXUDATES, NO ABSCESSES NOTED, MUCOUS MEMBRANE MOIST NECK: SUPPLE, NON-TENDER, NO THYROMEGALY, NO MASSES, NO JVD, NO BRUITS BREAST:DEFERRED CHEST:NO TENDERNESS IRREGULAR IRREGULAR NO RALES, NO WHEEZING, NO RHONCHI, NO STRIDOR, GOOD BREATH SOUNDS BILATERALLY HEART: REGULAR RATE, REGULAR RHYTHM, NO MURMUR, NO GALLOPS VASCULAR: TRACE PERIPHERAL EDEMA, ABDOMEN: SOFT, POSITIVE BOWEL SOUNDS, NONDISTENDED, NO GUARDING, NONTENDER, NO REBOUND, NO MASSES NO HEPATOMEGALY, NO SPLENOMEGALY, NO MATHIAS'S SIGN, NO HERNIAS. RECTAL: DEFERRED GENITAL: DEFERRED NEUROLOGICAL: NORMAL SPEECH, MOTOR FUNCTION INTACT, SENSORY FUNCTION INTACT MUSCULOSKELETAL: NECK NONTENDER, FULL RANGE OF MOTION, BACK NONTENDER, FULL R LEE OF MOTION, EXTREMITIES: NONTENDER, FULL RANGE OF MOTION SKIN: COLOR PINK, DRY, NO TURGOR, NO RASH, NO LACERATIONS, NO ABRASIONS, NO CONTUSIONS. LYMPHATIC: DEFERRED Results (Laboratory/Radiology) Laboratory/Radiology Laboratory Tests Test 10/23/25 17:55 White Blood Count 11.2 K/uL (4.8-10.8) H Red Blood Count 4.96 MIL/uL (4.00-5.50) Hemoglobin 15.0 g/dL (12.0-16.0) Hematocrit 44.5 % (36-48) Mean Corpuscular Volume 89.7 fL (79-99) Mean Corpuscular Hemoglobin 30.2 pg (27.0-33.0) Mean Corpuscular Hemoglobin Concent 33.7 g/dL (32.0-36.0) Red Cell Distribution Width 13.4 % (11.0-15.5) Platelet Count 261 K/uL (130-400) Mean Platelet Volume 9.3 fL (7.5-10.5) Immature Granulocyte % (Auto) 0.5 % (0-1) Neutrophils (%) (Auto) 49.8 % (40.0-77.0) Lymphocytes (%) (Auto) 37.4 % (21.0-51.0) Monocytes (%) (Auto) 10.9 % (3.0-13.0) Eosinophils (%) (Auto) 1.0 % (0.0-8.0) Basophils (%) (Auto) 0.4 % (0.0-5.0) Neutrophils # (Auto) 5.6 K/uL (1.8-7.7) Lymphocytes # (Auto) 4.2 K/uL (1.0-4.8) Monocytes # (Auto) 1.2 K/uL (0.1-1.0) H Eosinophils # (Auto) 0.11 K/uL (0.00-0.70) Basophils # (Auto) 0.04 K/uL (0.00-0.20) Absolute Immature Granulocyte (auto 0.06 K/uL (0-1) Nucleated Red Blood Cells 0.0 % (0.0-0.19) Sodium Level 136 mmol/L (136-145) Potassium Level 3.4 mmol/L (3.5-5.1) L Chloride Level 102 mmol/L (101-111) Carbon Dioxide Level 25 mmol/L (21-32) Blood Urea Nitrogen 29 mg/dL (7-18) H Creatinine 1.7 mg/dL (0.5-1.0) H Glomerular Filtration Rate Calc 31 mL/min (>90) Random Glucose 144 mg/dL (70-105) H Total Calcium 8.6 mg/dL (8.5-10.1) Magnesium Level 2.00 mg/dL (1.80-2.40) Troponin I High Sensitivity 20 ng/L (4-50) B-Type Natriuretic Peptide 201 pg/mL (0-100) H XAM: CR Chest, 1 View. CLINICAL HISTORY: PALPITATION COMPARISON: None provided. FINDINGS: LUNGS: There is no mass, infiltrate, or acute pulmonary abnormality. PLEURAL SPACES: No pleural effusion or pneumothorax. MEDIASTINUM: Cardiac size and mediastinal contours within normal limits. BONES: No acute osseous abnormality. IMPRESSION: No acute cardiopulmonary pathology is evident. /[facility] Labs Reviewed?: Yes EKG Comment: 16785/EKG ATRIAL FIBRILLATION/HEART RATE 84/LEFT BUNDLE BRANCH BLOCK/QUESTIONABLE ANTEROLATERAL INFARCTION IN THE LATERAL LEADS V4 V5 V6 ED Course ED Course Orders Procedure Category Date Status Time B-Type Natriuretic LAB 10/23/25 Complete Peptide 17:46 Cbc With Differential LAB 10/23/25 Complete 17:46 Chest 1vw RAD 10/23/25 Resulted 17:46 12 Lead Ekg Tracing- EKG 10/23/25 Logged Technical 17:46 Magnesium LAB 10/23/25 Complete 17:46 Troponin I High LAB 10/23/25 Complete Sensitivity 17:46 Aspirin 325mg Tab PHA 10/23/25 Complete (Aspirin 325mg Tab) 18:00 Urinalysis Profile LAB 10/23/25 Logged 17:46 Basic Metabolic Panel LAB 10/23/25 Complete 17:46 0.9%Nacl 1000ml (Ns PHA 10/23/25 Complete 1000ml) 18:00 Potassium Bicarb/Cit PHA 10/23/25 Complete Ac 25meq (K-Lyte Ta 18:30 Edm Admit Bridge Order ADM 10/23/25 Transmitted 19:52 Echo 2-D Complete ECHO 10/23/25 Logged 19:52 Current Medications Medications (Trade) Dose Ordered Sig/Yamel Route PRN Reason Start Time Stop Time Status Last Admin Dose Admin Aspirin (Aspirin 325mg Tab) 325 mg ONCE ONCE PO 10/23/25 18:00 10/23/25 18:02 DC 10/23/25 18:10 Potassium Bicarbonate (K-Lyte Tablet Eff 25 Meq Tablet.eff) 25 meq ONCE ONCE PO 10/23/25 18:30 10/23/25 18:45 DC 10/23/25 18:47 Sodium Chloride 1,000 ml @ 0 mls/hr ONCE ONCE IV 10/23/25 18:00 10/23/25 18:02 DC 10/23/25 18:11 Vital Signs Date Time Temp Pulse Resp B/P (MAP) Pulse Ox O2 Delivery O2 Flow Rate FiO2 10/23/25 19:22 98.4 52 17 111/50 97 Room Air* 0 21 10/23/25 18:51 98.1 78 18 101/44 98 Room Air* 0 21 10/23/25 17:42 99.0 81 24 89/64 97 Room Air 0 1935/PATIENT STATES SHE FEELS BETTER BUT NOT 100% AFTER TREATMENT WITH POTASSIUM AND FLUIDS. SHE WOULD LIKE TO BE ADMITTED TO THE HOSPITAL FOR HER DYSPNEA ON EXERTION, PALPITATIONS. SHE SAID HER BOAT DECKHAND'S HIS DOCTOR MILD TIMES BEFORE AND SHE SAID IT IS NOT HELPING.1954/\ SPOKE [id number]/SPOKE WITH DR. GAVIN FINK REVIEWED EKG LABS CHEST X-RAY AND I NTERVENTIONS FOR ATRIAL FIBRILLATION AND HYPOKALEMIA. SHE AGREED TO ADMIT PATIENT TO THE HOSPITAL REQUESTED I ORDER A 2D ECHOCAR DIOGRAM FOR IN THE MORNING. HEART Score Response (Comments) Value EKG: Repolarization changes 1 Age: > 65yrs (+2) 2 Risk Factors: 1-2 risk factors (+1) 1 Initial Troponin: Normal limit (0) 0 Total 4 Medical Decision Making MDM MDM: DIFFERENTIAL DIAGNOSIS: PNEUMONIA/BRONCHITIS/ELECTROLYTE IMBALANCE/DEHYDRATION/ ACS/AMI/ANXIETY RATIONALE: TESTS CONSIDERED AND ORDERED SECONDARY TO SHARED DECISION MAKING INCLUDE: LABS, ECG AND RADIOLOGY PREVIOUS OUTSIDE RECORDS REVIEWED: OLD ER VISITS. RISK OF COMPLICATION AND/OR MORBIDITY OR MORTALITY OF PATIENT MANAGEMENT: N MILD MEDICATIONS-PER MEDICATION RECONCILIATION NEED FOR HOSPITALIZATION: PATIENT DOES MEET CRITERIA FOR HOSPITALIZATION. PATIENT WILL NEED TO BE ADMITTED FOR EVALUATION OF HER EKG SHORTNESS A BREATH AND ELECTROLYTE IMBALANCE AND MARTIN. NEED FOR EMERGENCY MAJOR/MINOR SURGERY: NO THERE ARE NO SOCIAL CONCERNS WITH THIS PATIENT. PRESCRIPTION DRUG MANAGEMENT PRESCRIPTIONS WILL INCLUDE SYMPTOMATIC CARE PATIENT'S PRIOR EXTERNAL MEDICAL RECORDS FROM OTHER ER VISITS WERE REVIEWED BY ME INDICATED. PRIOR TESTING AND RESULTS FROM PREVIOUS VISITS WERE REVIEWED. PRIOR TESTS WERE TAKEN INTO ACCOUNT WITH MEDICAL DECISION MAKING AND RESOURCE UTILIZATION, INDEPENDENT HISTORIAN/HISTORIANS WERE USED TO OBTAIN COMPLETE MEDICAL HISTORY. I INDEPENDENTLY INTERPRETED THE TEST THAT WERE PERFORMED, RESULTS WERE REVIEWED BY ME AND CONSIDERED FINDINGS ON RADIOLOGY IF ORDERED. MEDICAL MANAGEMENT AND EXAMINATION INTERPRETATION DISCUSSIONS WERE HAD BY ME WITH OTHER QUALIFIED HEALTHCARE PROFESSIONALS INDICATED FOR THE PATIENT'S CARE. DX & DISP Disposition: Inpatient Decision to Admit Time: 19:36 Departure Impression: Primary Impression: Exertional shortness of breath Additional Impressions: Hypokalemia, Acute kidney injury, Elevated brain natriuretic peptide (BNP) level, Diabetes mellitus with hyperglycemia, History of atrial fibrillation Condition: Stable Referrals: GAVIN FINK MD (PCP) Time of Disposition: 19:36 I have reviewed the case, and I agree with, Diagnosis and Plan AILYN RAMEY Oct 23, 2025 17:49
[2025-10-23] MEDS: ASPIRIN 325MG TAB PO ONE (18:10)
[2025-10-23] MEDS: 0.9%NACL 1000ML 1,000 ML IV ONE (18:11)
[2025-10-23 18:13] LABS: IMMATURE GRANULOCYTE ABSOLUTE 0.06 K/uL (0-1); NUCLEATED RED BLOOD CELLS 0.0 % (0.0-0.19); PLATELET COUNT (AUTO) 261 K/uL (130-400); RED BLOOD CELL COUNT(AUTO) 4.96 MIL/uL (4.00-5.50); RED CELL DISTRIBUTION WIDTH 13.4 % (11.0-15.5); WHITE BLOOD COUNT (AUTO) 11.2 K/uL (4.8-10.8)
[2025-10-23 18:26] LABS: CREATININE 1.7 mg/dL (0.5-1.0); GLOMERULAR FILTR. RATE CALC 31.0 mL/min (>90); GLUCOSE,RANDOM 144.0 mg/dL (70-105); SODIUM SERUM 136.0 mmol/L (136-145); UREA NITROGEN, BLOOD 29.0 mg/dL (7-18)
--- NOTE | 2025-10-23 18:44 | HMCIMG ---
EXAM: CR Chest, 1 View. CLINICAL HISTORY: PALPITATION COMPARISON: None provided. FINDINGS: LUNGS: There is no mass, infiltrate, or acute pulmonary abnormality. PLEURAL SPACES: No pleural effusion or pneumothorax. MEDIASTINUM: Cardiac size and mediastinal contours within normal limits. BONES: No acute osseous abnormality. IMPRESSION: No acute cardiopulmonary pathology is evident. /[place]
[2025-10-23] MEDS: 0.9%NACL 1000ML 1,000 ML IV SCH (20:04)
--- NOTE | 2025-10-23 20:39 | HP ---
HISTORY AND PHYSICAL Date of Visit: Oct 23, 2025 Time of Visit: 20:39 ADMISSION DATE: Oct 23, 2025 at 19:55 CC: SOB / PALPITATIONS HPI: PATIENT IS A 75-YEAR-OLD FEMALE COMING IN TODAY WITH COMPLAINTS OF HEART PALPITATIONS ONSET LAST WEEK. SHE DENIES CHEST PRESSURE OR PAIN AND NO REFERRED PAIN NO BACK PAIN NO JAW PAIN NO ARM PAIN. SHE STATES SHE HAS SEEN HER PRIMARY CARE DOCTOR LAST WEEK WHO CENTER FOR A HEART MONITOR AND SHE HAS TO TURN IT IN TOMORROW TO HER PHYSICIAN. NO NAUSEA VOMITING. SHE DOES HAVE A HISTORY OF ATRIAL FIBRILLATION AND IS ON ELIQUIS AND HAS BEEN COMPLIANT. SHE WAS IN TO SEE HER [employer] SALES SPECIALIST ON FRIDAY AND THEY TOLD HER SHE WAS DEHYDRATED AND STOPPED HER SUPPLEMENTS AND WAS TO CONTINUE HER REGULAR MEDICATIONS AND HAD A FOLLOW UP THIS WEEK. HOWEVER, DESPITE HAVING GOOD HR AND BP AT HOME SHE JUST DID NOT FEEL WELL AND DESCRIBED GENERALIZED WEAKNESS. SHE ALSO STATES SHE HAS HAD SHORTNESS A BREATH ON EXERTION FOR THE LAST 7-10 DAYS. STATES HIS GETTING WORSE THIS IS DESPITE HER VISITS TO HER DOCTORS AND SPECIALISTS. NO FEVERS CHILLS COUGH OR CONGESTION. PATIENT APPEARS VERY ANXIOUS AND NERVOUS. PAST MEDICAL HISTORY: ATYPICAL CHEST PAINS RELATED TO MUSCULOSKELETAL / STEFANIE ACUTE PYELONEPHRITIS MIXED LIPIDS ALLERGIC RHINITIS HYPERTENSIVE RENAL DISEASE / CKD 3A W/O CHF NEG STRESS TEST 2019 P-AFIB W SECONDARY HYPERCOAGULABLE STATE ANTI COAGULATION WITH ELIQUIS OTHER SPECIFIED DISORDERS OF ARTERIES AND ARTERIOLES RELATED TO CAROTID DISEASE ATHEROSCLEROSIS OF AORTA STEFANIE SOCIAL HISTORY: LIVES LOCALLY WITH HER BROTHER FAMILY HISTORY: CVD AND HTN * Patient History: Cardiovascular disease FATHER Hypertension MOTHER FATHER BROTHER BROTHER Allergies: Coded Allergies: amlodipine (Unverified Allergy, Unknown, 05/03/20) Scheduled Apixaban (Eliquis), 5 MG PO BID Ca/D3/Mag#11/Zinc/Peanut Shaker/Lamont/Bor (Caltrate 600+D Plus Tablet), 1 TAB PO BID Cholecalciferol (Vitamin D3) (Vitamin D3), 125 MCG PO DAILY Diltiazem HCl (Diltiazem ER), 240 MG PO DAILY Escitalopram Oxalate (Escitalopram Oxalate), 1 TAB PO DAILY Losartan Potassium (Losartan Potassium), 50 MG PO BID Metoprolol Succinate (Metoprolol Succinate), 50 MG PO BID Pravastatin Sodium (Pravastatin Sodium), 1 TAB PO HS, (Reported) Scheduled PRN Buspirone HCl (Buspirone HCl), 5 MG PO BID PRN for ANXIETY/AGITATION Cetirizine HCl (Cetirizine HCl), 10 MG PO DAILY PRN for allergies Tizanidine HCl (Tizanidine HCl), 2 MG PO DAILY PRN for MUSCLE SPASMS Discontinued Medications Hydralazine HCl (Hydralazine HCl), 50 MG PO TID Hydralazine HCl (Hydralazine HCl), 50 MG PO TID Hydrochlorothiazide (Hydrochlorothiazide), 25 MG PO DAILY Hydrochlorothiazide (Hydrochlorothiazide), 12.5 MG PO DAILY Levofloxacin (Levofloxacin), 1 TAB PO DAILY Magnesium Glycinate (Mag Glycinate), 100 MG PO DAILY Potassium Chloride (Potassium Chloride), 10 MEQ PO DAILY Tizanidine HCl (Tizanidine HCl), 1 TAB PO HS PRN for OTHER [SEE ORDER COMMENTS] Review of Systems Normal Constitutional:, Normal Eyes:, Normal Ear/Nose/Mouth/Throat, Normal Gastrointestinal:, Normal Genitourinary:, Normal Integumentary:, Normal Musculoskeletal:, Normal Neurological:, Normal Psychological:, Normal Endocrine:, Normal Hematologic/Lymphatic:, Normal Allergic/Immunologic:; Abnormal Cardiovascular: (PALPITATIONS), Abnormal Respiratory: (SOB) Physical Exam Vital Signs Vital Signs Date Time Temp Pulse Resp B/P (MAP) Pulse Ox O2 Delivery O2 Flow Rate FiO2 10/23/25 17:42 99.0 81 24 89/64 97 Room Air 0 10/23/25 18:51 21 Appearance: Other (OBESE AND APPEARS VERY ANXIOUS) Eyes: Clear, PERRL, EOM Normal Ear/Nose/Mouth/Throat: Hearing WNL, Oropharynx WNL Neck: Symmetric, trach midline Cardiovascular: No Edema, Abnormal (IRREG IRREG) Respiratory: No Retractions, No rubs/wheezing, Lungs clear G.I.: Normal bowel sounds, No rebound tenderness Lymphatic: No lymphadenopathy neck, No lymphadenopathy axilla, No lymphadenopathy groin Musculoskeletal: Gait WNL, Normal ROM, Strength/Tone WNL Breasts: Symmetrical, no masses Skin: No rash/ulcers, No induration/nodules Neurology: Nerves I-XII intact, Sensation WNL Psychology: Insight WNL, Memory WNL, Abnormal (VERY ANXIOUS) Diagnostics Laboratory Tests Test 10/23/25 17:55 Range/Units White Blood Count 11.2 4.8-10.8 K/uL Red Blood Count 4.96 4.00-5.50 MIL/uL Hemoglobin 15.0 12.0-16.0 g/dL Hematocrit 44.5 36-48 % Mean Corpuscular Volume 89.7 79-99 fL Mean Corpuscular Hemoglobin 30.2 27.0-33.0 pg Mean Corpuscular Hemoglobin Concent 33.7 32.0-36.0 g/dL Red Cell Distribution Width 13.4 11.0-15.5 % Platelet Count 261 130-400 K/uL Mean Platelet Volume 9.3 7.5-10.5 fL Immature Granulocyte % (Auto) 0.5 0-1 % Neutrophils (%) (Auto) 49.8 40.0-77.0 % Lymphocytes (%) (Auto) 37.4 21.0-51.0 % Monocytes (%) (Auto) 10.9 3.0-13.0 % Eosinophils (%) (Auto) 1.0 0.0-8.0 % Basophils (%) (Auto) 0.4 0.0-5.0 % Neutrophils # (Auto) 5.6 1.8-7.7 K/uL Lymphocytes # (Auto) 4.2 1.0-4.8 K/uL Monocytes # (Auto) 1.2 0.1-1.0 K/uL Eosinophils # (Auto) 0.11 0.00-0.70 K/uL Basophils # (Auto) 0.04 0.00-0.20 K/uL Absolute Immature Granulocyte (auto 0.06 0-1 K/uL Nucleated Red Blood Cells 0.0 0.0-0.19 % Sodium Level 136 136-145 mmol/L Potassium Level 3.4 3.5-5.1 mmol/L Chloride Level 102 101-111 mmol/L Carbon Dioxide Level 25 21-32 mmol/L Blood Urea Nitrogen 29 7-18 mg/dL Creatinine 1.7 0.5-1.0 mg/dL Glomerular Filtration Rate Calc 31 >90 mL/min Random Glucose 144 70-105 mg/dL Total Calcium 8.6 8.5-10.1 mg/dL Magnesium Level 2.00 1.80-2.40 mg/dL Troponin I High Sensitivity 20 4-50 ng/L B-Type Natriuretic Peptide 201 0-100 pg/mL Assessment/Plan Assessment/Plan ASSESSMENT: ATYPICAL CHEST PAINS RELATED TO MUSCULOSKELETAL / STEFANIE ACUTE PYELONEPHRITIS MIXED LIPIDS ALLERGIC RHINITIS HYPERTENSIVE RENAL DISEASE / CKD 3A W/O CHF NEG STRESS TEST 2019 P-AFIB W SECONDARY HYPERCOAGULABLE STATE ANTI COAGULATION WITH ELIQUIS OTHER SPECIFIED DISORDERS OF ARTERIES AND ARTERIOLES RELATED TO CAROTID DISEASE ATHEROSCLEROSIS OF AORTA STEFANIE PRESENTED WITH DEHYDRATION AND MARTIN ROSA AND STEFANIE PLAN: SERIAL CARDIAC ENZYMES TELEMETRY MONITORING RESUME HR AND BP MEDS NEEDED AND ADJUST NEEDED HYDRATE WITH IVF SUPPLEMENT ELECTROLYTES ANTI ANXIOLYTICS NEEDED SUPPORTIVE MEASURES GAVIN FINK MD Oct 23, 2025 20:39
[2025-10-23 20:51] LABS: CREATININE 1.4 mg/dL (0.5-1.0); GLOMERULAR FILTR. RATE CALC 39.0 mL/min (>90); GLUCOSE,RANDOM 119.0 mg/dL (70-105); SODIUM SERUM 138.0 mmol/L (136-145); UREA NITROGEN, BLOOD 27.0 mg/dL (7-18)
[2025-10-23 20:52] LABS: APPEARANCE,URINE TURBID (CLEAR); GLUCOSE, URINE (UA) NEGATIVE (NEGATIVE); LEUKOCYTE ESTERASE ,URINE 500 Leu/uL (NEGATIVE); NITRATE,URINE NEGATIVE (NEGATIVE); OCCULT BLOOD,URINE SMALL (NEGATIVE)
[2025-10-23 20:53] LABS: ADD UA MICROSCOPIC YES
[2025-10-23 20:59] LABS: CREATINE KINASE, TOTAL 40.0 U/L (21-232)
[2025-10-23 21:04] LABS: SQUAMOUS EPITHELIAL CELL,UR MOD /HPF (0-2); WBC CLUMP MANY /HPF (0-1)
[2025-10-24 00:45] VITALS: BP 137/74; PULSE 74; RESP 20; TEMP 97.5
[2025-10-24 01:40] LABS: CREATINE KINASE, TOTAL 42.0 U/L (21-232)
[2025-10-24 03:26] VITALS: BP 128/58; PULSE 62; RESP 20; TEMP 98.7
[2025-10-24 08:00] VITALS: BP 127/69; PULSE 80; RESP 18; TEMP 98.3; O2SAT 98
[2025-10-24 08:15] LABS: CREATINE KINASE, TOTAL 44.0 U/L (21-232)
[2025-10-24] MEDS ORDERED: TIZANIDINE HCL 2 MG TABLET PO PRN (09:00)
[2025-10-24] MEDS: PoTASSium chloRIDE 20MEQ ER 20 MEQ ERTAB PO PRN (09:49)
[2025-10-24] MEDS ORDERED: PoTASSium chl 10% ELIXIR 20MEQ 20 MEQ/15 ML UDCUP PO PRN (10:00)
--- NOTE | 2025-10-24 10:32 | EKG ---
[facility] Test Date: 2025-10-23 Test Time: 17:27:40 Pat Name: KELIN LUCIANO Department: [facility] Room: 416 1 Gender: F Uniform Cap Operator: [id number] : [id number] Requested By: AILYN RAMEY Order Number: [id number] Reading MD: Singh Perez Measurements Intervals [place] Rate: 84 P: 0 MO: 0 QRS: -47 QRSD: 139 T: 130 QT: 408 QTc: 466 Interpretive Statements Atrial fibrillation Left bundle branch block Probable anterolateral infarct, age indeterm Electronically Signed On 10-24-2025 13:16:17 CUSTOMS CONSULTANT by Singh Perez Please click the below link to view image of tracing.
[2025-10-24 12:00] VITALS: BP 132/58; PULSE 77; RESP 18; TEMP 97.7
--- NOTE | 2025-10-24 15:32 | NUR ---
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 Pt states she is active and independent of all her self care, home management, brother transports pt as needed. PCP is Rocio Irwin and uses [facility] for rx needs. Discussed dcp, pt denies need for snf and will return home at dc
[2025-10-24] MEDS: 0.9% NACL 500ML IV.SOLN 500 ML IV ONE (15:57)
--- NOTE | 2025-10-24 15:57 | NUR ---
DISCHARGE INSTRUCTIONS GIVEN TO PATIENT, EDUCATED ON ALL CURRENT AND NEW MEDICATIONS. INFORMED TO REFRIGERATION TECH AT PHARMACY. VERBALIZED UNDERSTANDING. IV REMOVED, DRESSING APPLIED.
[2025-10-24 16:00] VITALS: BP 134/68; PULSE 54; RESP 18; TEMP 98.1
--- NOTE | 2025-10-24 17:42 | DS ---
DISCHARGE SUMMARY Date of Visit: Oct 24, 2025 Time of Visit: 17:42 ADMISSION DATE: Oct 23, 2025 at 19:55 DISCHARGE DATE: Oct 24, 2025 ATTENDED PHYSICIAN: Mira Irwin MD DISCHARGE DIAGNOSIS: DEHYDRATION AND MARTIN ROSA AND STEFANIE MIXED LIPIDS ALLERGIC RHINITIS HYPERTENSIVE RENAL DISEASE / CKD 3A W/O CHF NEG STRESS TEST 2019 P-AFIB W SECONDARY HYPERCOAGULABLE STATE ANTI COAGULATION WITH ELIQUIS OTHER SPECIFIED DISORDERS OF ARTERIES AND ARTERIOLES RELATED TO CAROTID DISEASE ATHEROSCLEROSIS OF AORTA STEFANIE SUPPORT MERCHANDISER(S): NONE PROCEDURES: NONE RADIOLOGY: CXR1VW - CHEST 1VW FINDINGS: LUNGS: There is no mass, infiltrate, or acute pulmonary abnormality. PLEURAL SPACES: No pleural effusion or pneumothorax. MEDIASTINUM: Cardiac size and mediastinal contours within normal limits. BONES: No acute osseous abnormality. IMPRESSION: No acute cardiopulmonary pathology is evident. HOSPITAL COURSE: THIS IS A 75 YR OLD WOMAN WITH THE ABOVE PMH WHO PRESENTED WITH DEHYDRATION AND MARTIN C/O OF ROSA AND SUSPECTED DUE TO STEFANIE. SHE WAS HYDRATED WITH IVF, SUPPLEMENTED ON HER ELECTROLYTES. HER DIET AND EXERCISE WERE INCREASED TOLERATED. HER BLOOD PRESSURE AND HR WERE CONTROLLED AND CONTINUED ON ELIQUIS. ECHO DONE AND RESULTS PENDING. ONCE STABLE SHE WAS ENCOURAGED TO ADD ESCITALOPRAM FOR STEFANIE WITH INSTRUCTIONS AND SIDE EFFECTS DISCUSSED. IN THE PAST SHE HAS BEEN VERY RELUCTANT BUT THIS TIME AGREED TO TRY AND COMPLY WITH REGIMEN TO SEE IF CAN HELP CONTROL HER ANXIETY. AN ECHO WAS DONE AND RESULTS WERE PENDING. ONCE STABLE SHE WAS DISCHARGED HOME IN STABLE CONDITION. DIET: HEART HEALTHY ACTIVITY: PROGRESSIVE AMBULATION CONDITION: STABLE EQUIPMENT: NONE FOLLOW UP APPOINTMENT(S): DR IRWIN IN 2-5 DAYS DISPOSITION: HOME CODE STATUS: FULL OTHER : ECHO DONE AND RESULTS PENDING MEDICATION RECONCILIATION : D/C HCT AND HYDRALAZINE ADD ESCITALOPRAM 10 MG DAILY ^ Home Meds Active Scripts Escitalopram Oxalate (Escitalopram Oxalate) 10 Mg Tablet, 1 TAB PO DAILY for 90 Days, #90 TAB 1 Refill Prov:MIRA IRWIN MD 10/24/25 Ca/D3/Mag#11/Zinc/Clinical Care Leader/Lamont/Bor (Caltrate 600+D Plus Tablet) 600 Mg-800 Tablet, 1 TAB PO BID for 30 Days, #60 TAB 0 Refills Prov:MIRA IRWIN MD 10/24/25 Cholecalciferol (Vitamin D3) (Vitamin D3) 125 Mcg (5000 Unit) Capsule, 125 MCG PO DAILY, #90 CAP Prov:MIRA IRWIN MD 10/24/25 Cetirizine HCl (Cetirizine HCl) 10 Mg Tablet, 10 MG PO DAILY PRN for allergies, #90 TAB Prov:MIRA IRWIN MD 10/24/25 Tizanidine HCl (Tizanidine HCl) 2 Mg Capsule, 2 MG PO DAILY PRN for MUSCLE SPASMS, #30 CAP Prov:MIRA IRWIN MD 10/24/25 Buspirone HCl (Buspirone HCl) 5 Mg Tablet, 5 MG PO BID PRN for ANXIETY/AGITATION for 90 Days, #90 TAB Prov:MIRA IRWIN MD 10/24/25 Metoprolol Succinate (Metoprolol Succinate) 50 Mg Tab.er.24h, 50 MG PO BID for 90 Days, #180 TAB Prov:MIRA IRWIN MD 06/29/25 Losartan Potassium (Losartan Potassium) 50 Mg Tablet, 50 MG PO BID, #180 TAB Prov:MIRA IRWIN MD 03/19/23 Apixaban (Eliquis) 5 Mg Tablet, 5 MG PO BID, #60 TAB 1 Refill Prov:MIRA IRWIN MD 05/03/20 Diltiazem HCl (Diltiazem ER) 240 Mg Tab.er.24h, 240 MG PO DAILY, #90 TAB 0 Refills Prov:MIRA IRWIN MD 05/02/20 Reported Medications Pravastatin Sodium (Pravastatin Sodium) 40 Mg Tablet, 1 TAB PO HS for 30 Days, #30 TAB 0 Refills 06/29/25 Discontinued Scripts Magnesium Glycinate (Mag Glycinate) 100 Mg Tablet, 100 MG PO DAILY, #90 TAB Prov:MIRA IRWIN MD 10/24/25 Potassium Chloride (Potassium Chloride) 10 Meq Tab.er.prt, 10 MEQ PO DAILY, #90 TAB Prov:MIRA IRWIN MD 10/24/25 Hydralazine HCl (Hydralazine HCl) 50 Mg Tablet, 50 MG PO TID for 90 Days, #90 TAB Prov:MIRA IRWIN MD 10/24/25 Hydrochlorothiazide (Hydrochlorothiazide) 12.5 Mg Tablet, 12.5 MG PO DAILY for 90 Days, #90 TAB Prov:MIRA IRWIN MD 10/24/25 Tizanidine HCl (Tizanidine HCl) 2 Mg Tablet, 1 TAB PO HS PRN for OTHER [SEE ORDE R COMMENTS] for 30 Days, #30 TAB 0 Refills prn chest or back muscle spasm Prov:MIRA IRWIN MD 06/30/25 Levofloxacin (Levofloxacin) 250 Mg Tablet, 1 TAB PO DAILY for 5 Days, #5 TAB 0 Refills Prov:MIRA IRWIN MD 06/30/25 Hydrochlorothiazide (Hydrochlorothiazide) 25 Mg Tablet, 25 MG PO DAILY for 90 Days, #90 TAB Prov:MIRA IRWIN MD 06/29/25 Hydralazine HCl (Hydralazine HCl) 50 Mg Tablet, 50 MG PO TID for 90 Days, #270 TAB Prov:MIRA IRWIN MD 06/29/25 MIRA IRWIN MD Oct 24, 2025 17:42
--- NOTE | 2025-10-24 23:22 | HMCSR ---
APPROVED REPORT EXAM: Two-dimensional and M-mode echocardiogram with Doppler and color Doppler. INDICATION ICD: Atrial Fibrillation Dyspnea 2D Dimensions RVDd 3.0 cm LVEF(%) 51.6 (>50%) LVED Vol(simp.) 99.0 mL IVSd 0.9 (0.7-1.1cm) FS(%) 26 % LVES Vol(simp.) 43.0 mL LVDd 3.7 (3.8-5.6cm) LA (2D) 4.0 (1.6-4.0cm) LVEF(%, simp.) 57 % PWd 0.9 (0.7-1.1cm) Ao Root(2D) 3.2 (2.0-3.7cm) LA ESV INDEX (BP) 26.25 mL/m2 LVDs 2.8 (2.5-4.0cm) LVOT diam 1.7 (1.8-2.4cm) IVC diam 1.7 cm Deformation Strain Apical 4 -14.4 % Apical 2 -13.7 % Apical 3 -16.8 % Global Strain -15.0 % M-Mode Dimensions EPSS 0.3 cm Aortic Valve AoV Vmax 1.2 m/s Ao Peak GR 5.5 mmHg LVOT Vmax 1.1 m/s AoV VTI 0.3 m Ao Mean GR 2.9 mmHg LVOT VTI 0.23 m CRISTÓBAL (VMAX) 2.19 cm2 Al P1/2T 985 ms CRISTÓBAL (VTI) 2.0 cm2 Mitral Valve MV E Vmax 126.2 cm/s DECEL Time 161 ms MV A Vmax 50.2 cm/s P 1/2 T 68 ms E/A ratio 2.5 MVA (PHT) 3.2 cm2 TDI E/E' Medial 15.7 Lateral E' Peak V 8.01 cm/s Medial E' Peak V 8.34 cm/s Pulmonary Valve PV Vmax 1.1 m/s PV VTI 0.27 m PV Mean GR 2.5 mmHg PV Peak GR 5.0 mmHg Left Ventricle The left ventricle is normal size. There is paradoxical septal wall motion noted. The other self are normal in function. Mild concentric left ventricular hypertrophy. Left ventricle systolic function is low normal, estimated LVEF is 50 to 55%. The left ventricular diastolic function is normal. Right Ventricle The right ventricle is normal size. The right ventricular systolic function is normal. Atria The left atrium size is normal. The right atrium size is normal. Aortic Valve Aortic valve is trileaflet. The leaflets are mildly thickened and calcified. Mild aortic regurgitation. There is no aortic valvular stenosis. Mitral Valve The mitral valve is normal in structure. Trace mitral regurgitation. There is no mitral valve stenosis. Tricuspid Valve The tricuspid valve is normal in structure. Trace tricuspid regurgitation. RVSP is normal. Pulmonic Valve Pulmonic valve is not well visualized. Great Vessels The aortic root is normal in size. The IVC is normal in size and collapses >50% with inspiration. Pericardium There is no pericardial effusion. Conclusion The cardiac chambers are normal in size. Mild concentric left ventricular hypertrophy. There is paradoxical septal wall motion noted. The other self are normal in function. Left ventricle systolic function is low normal, estimated LVEF is 50 to 55%. The left ventricular diastolic function is normal. Mild aortic regurgitation. Trace mitral regurgitation. Trace tricuspid regurgitation. PASP is normal. There is no pericardial effusion.
== END 2025-10-24 16:45 | disposition home or self-care (01) ==
LOC: EDH 17:41 → EDHIP 19:55 → 4CH 23:35
PROVIDERS: ADMIT Internal Medicine; ATTEND Internal Medicine
DX: E86.0 Dehydration (principal); I12.9 Hypertensive chronic kidney disease with stage 1 through stage 4 chronic kidney disease, or unspecified chronic kidney disease; E11.22 Type 2 diabetes mellitus with diabetic chronic kidney disease; N18.31 Chronic kidney disease, stage 3a; N17.9 Acute kidney failure, unspecified; E87.6 Hypokalemia; I25.10 Atherosclerotic heart disease of native coronary artery without angina pectoris; E78.00 Pure hypercholesterolemia, unspecified; E11.65 Type 2 diabetes mellitus with hyperglycemia; R00.2 Palpitations; F41.9 Anxiety disorder, unspecified; R79.89 Other specified abnormal findings of blood chemistry; Z79.01 Long term (current) use of anticoagulants; Z79.899 Other long term (current) drug therapy; Z98.890 Other specified postprocedural states
CPT/HCPCS: 96360; 99285; 82550 ×3; 83735; 84484 ×4; 80048 ×2; 83880; 85025; 87086; 81001; 36415 ×2; 71045; 93005; 96361; 82948 ×2; 93306; 93356; G0378 ×20; J7030 ×2